=== PATIENT | female | born 1990 | race Caucasian/White ===

== ENCOUNTER 2020-07-11 08:23 | Observation (INO) | payer OTHER ==
[~2020-07-11] VITALS: Ht 170.2 cm; Wt 114.4 kg
[2020-07-11] MEDS ORDERED: KETOROLAC 15 MG/ML VIAL. IVP ONE (08:30)
[2020-07-11] MEDS ORDERED: diazePAM 5 MG TABLET PO ONE (08:30)
[2020-07-11] MEDS ORDERED: IV NORMAL SALINE 1000ML BAG 1,000 ML IV ONE (08:30)
[2020-07-11] MEDS ORDERED: MORPHINE SULFATE 4 MG/ML VIAL. IV ONE (09:30)
--- NOTE | 2020-07-11 09:30 | PHYS DOC ---
Past Medical History Past Medical History: Kidney Stone, Other Additional Past Medical Histor: ARM FX, UTERINE FIB Past Surgical History: Smoking Status: Never Smoker Alcohol Use: None Adult General Chief Complaint Chief Complaint: BACK PAIN OR INJURY [facility] HPI Patient is a 30 year old female who denies any significant past history now presenting emergency department complaint of new onset of back pain. Patient states that approximate 30 minutes prior to arrival she was bending over to, type her back for her baby when she felt a popping sensation in her lower lumbar region in the center and then noted pain radiating down bilateral buttocks. Patient states that since that time she is been having intermittent spasming pain that is primarily in the central region but slightly more on the right than on the left. Denies any numbness or weakness in the lower extremities but does state that both her feet feel cool. Also denies any bladder or bowel incontinence. Denies any falls or other injuries to the area. Denies any history of similar symptoms. Patient does have a history of multiple fractures requiring surgical repair and is a history of section. Denies any fever, chills, nausea, vomiting, dizziness or lightheadedness. Review of Systems Review of Systems Constitutional: Denies fever or chills [] Eyes: Denies change in visual acuity, redness, or eye pain [] HENT: Denies nasal congestion or sore throat [] Respiratory: Denies cough or shortness of breath [] Cardiovascular: No additional information not addressed in HPI [] GI: Denies abdominal pain, nausea, vomiting, bloody stools or diarrhea [] : Denies dysuria or hematuria [] Musculoskeletal: Denies back pain or joint pain [] Integument: Denies rash or skin lesions [] Neurologic: Denies headache, focal weakness or sensory changes [] Endocrine: Denies polyuria or polydipsia [] All other systems were reviewed and found to be within normal limits, except as documented in this note. Current Medications Current Medications Current Medications Medications (Trade) Dose Ordered Sig/Martita Start Time Stop Time Status Last Admin Dose Admin Diazepam (Valium) 5 mg 1X ONCE 07/11/20 08:30 07/11/20 08:35 DC 07/11/20 08:45 5 MG Ketorolac Tromethamine (Toradol 15mg Vial) 15 mg 1X ONCE 07/11/20 08:30 07/11/20 08:35 DC 07/11/20 08:44 15 MG Morphine Sulfate (Morphine Sulfate) 4 mg 1X ONCE 07/11/20 09:30 07/11/20 09:31 DC 07/11/20 09:38 4 MG Sodium Chloride 1,000 ml @ 1,000 mls/hr 1X ONCE 07/11/20 08:30 07/11/20 09:29 DC 07/11/20 08:44 1,000 MLS/HR Allergies Allergies Allergies Coded Allergies Type Severity Reaction Last Updated Verified No Known Drug Allergies 07/11/20 No Physical Exam Physical Exam Constitutional: Well developed, well nourished, no acute distress, non-toxic appearance. [] HENT: Normocephalic, atraumatic, bilateral external ears normal, oropharynx moist, no oral exudates, nose normal. [] Eyes: PERRLA, EOMI, conjunctiva normal, no discharge. [] Neck: Normal range of motion, no tenderness, supple, no stridor. [] Cardiovascular:Heart rate regular rhythm, no murmur [] Lungs & Thorax: Bilateral breath sounds clear to auscultation [] Abdomen: Bowel sounds normal, soft, no tenderness, no masses, no pulsatile masses. [] Skin: Warm, dry, no erythema, no rash. [] Back: Mild lower lumbar midline tenderness and mild right lower paraspinal tenderness, no CVA tenderness. [] Extremities: No tenderness, no cyanosis, no clubbing, ROM intact, no edema. Holding right hip in flexion and external rotation Neurologic: Alert and oriented X 3, normal motor function, normal sensory fu nction, no focal deficits noted. [] Psychologic: Affect normal, judgement normal, mood normal. [] Current Patient Data Vital Signs Vital Signs Date Time Temp Pulse Resp B/P (MAP) Pulse Ox O2 Delivery O2 Flow Rate FiO2 07/11/20 10:57 80 20 106/65 (79) 98 Room Air 07/11/20 08:23 97.5 97.5 Lab Values Laboratory Tests Test 07/11/20 09:42 07/11/20 09:46 White Blood Count 6.8 x10^3/uL (4.0-11.0) Red Blood Count 4.57 x10^6/uL (3.50-5.40) Hemoglobin 13.7 g/dL (12.0-15.5) Hematocrit 41.2 % (36.0-47.0) Mean Corpuscular Volume 90 fL (79-100) Mean Corpuscular Hemoglobin 30 pg (25-35) Mean Corpuscular Hemoglobin Concent 33 g/dL (31-37) Red Cell Distribution Width 13.7 % (11.5-14.5) Platelet Count 219 x10^3/uL (140-400) Neutrophils (%) (Auto) 77 % (31-73) H Lymphocytes (%) (Auto) 17 % (24-48) L Monocytes (%) (Auto) 5 % (0-9) Eosinophils (%) (Auto) 1 % (0-3) Basophils (%) (Auto) 1 % (0-3) Neutrophils # (Auto) 5.2 x10^3/uL (1.8-7.7) Lymphocytes # (Auto) 1.1 x10^3/uL (1.0-4.8) Monocytes # (Auto) 0.3 x10^3/uL (0.0-1.1) Eosinophils # (Auto) 0.1 x10^3/uL (0.0-0.7) Basophils # (Auto) 0.0 x10^3/uL (0.0-0.2) Urine Collection Type Unknown Urine Color Yellow Urine Clarity Clear Urine pH 6.0 (<5.0-8.0) Urine Specific [place] >=1.030 (1.000-1.030) Urine Protein Negative mg/dL (NEG-TRACE) Urine Glucose (UA) Negative mg/dL (NEG) Urine Ketones (Stick) Trace mg/dL (NEG) Urine Blood Negative (NEG) Urine Nitrite Negative (NEG) Urine Bilirubin Negative (NEG) Urine Urobilinogen Dipstick 0.2 mg/dL (0.2 mg/dL) Urine Leukocyte Esterase Negative (NEG) Urine RBC 0 /HPF (0-2) Urine WBC 1-4 /HPF (0-4) Urine Squamous Epithelial Cells Mod /LPF Urine Bacteria 0 /HPF (0-FEW) Urine Mucus Mod /LPF Maternal Serum HCG Beta Subunit 663 mIU/mL (0-5) H Sodium Level 138 mmol/L (136-145) Potassium Level 3.6 mmol/L (3.5-5.1) Chloride Level 106 mmol/L (98-107) Carbon Dioxide Level 20 mmol/L (21-32) L Anion Gap 12 (6-14) Blood Urea Nitrogen 9 mg/dL (7-20) Creatinine 0.7 mg/dL (0.6-1.0) Estimated GFR (Cockcroft-Gault) 98.9 Glucose Level 111 mg/dL (70-99) H Calcium Level 8.6 mg/dL (8.5-10.1) POC Urine HCG, Qualitative Hcg positive (Negative) Laboratory Tests 07/11/20 09:42 Laboratory Tests 07/11/20 09:42 EKG EKG [] Radiology/Procedures Radiology/Procedures [] Course & Med Decision Making Course & Med Decision Making Pertinent Labs and Imaging studies reviewed. (See chart for details) 30f presented to emergency department new onset of back pain most consistent with acute muscle strain in the back of the right psoas. Less likely to be a dissection or other significant intra-abdominal abnormality given the patient's age. Will treat the patient symptomatically and obtain x-rays of the lumbar region After initial presentation test came back positive. Patient states that she did not she was and states this must be early. X-ray was canceled. After additional pain medication patient states that her symptoms returned. Limited in what we are able to give the patient as far as pain medica tion at this time. Still no neurologic deficits. At this time will admit the patient for amatory dysfunction and neuro checks to make sure she does not need an MRI of the spine Dragon Disclaimer Dragon Disclaimer This electronic medical record was generated, in whole or in part, using a voice recognition dictation system. Departure Departure Impression: Primary Impression: Back strain Disposition: ADMITTED INPT THIS HOSP Condition: GOOD Referrals: NO PCP (PCP) ALEXANDER ZACARIAS MD Jul 11, 2020 09:30
[2020-07-11 10:03] LABS: BILIRUBIN,URINE NEGATIVE (NEG); CLARITY,URINE CLEAR; COLOR,URINE YELLOW; NITRITE,URINE NEGATIVE (NEG); PROTEIN,URINE NEGATIVE (NEG-TRACE); UROBILINOGEN,URINE 0.2 mg/dL (0.2 mg/dL)
[2020-07-11 10:07] LABS: BASO % 1 % (0-3); EOS # 0.1 x10^3/uL (0.0-0.7); EOS % 1 % (0-3); HEMATOCRIT 41.2 % (36.0-47.0); HEMOGLOBIN 13.7 g/dL (12.0-15.5); LYMPH # 1.1 x10^3/uL (1.0-4.8); LYMPH % 17 % (24-48); MEAN CORPUSCULAR HEMOGLOBIN 30 pg (25-35); MEAN CORPUSCULAR HGB CONC 33 g/dL (31-37); MEAN CORPUSCULAR VOLUME 90 fL (79-100); MONO # 0.3 x10^3/uL (0.0-1.1); MONO % 5 % (0-9); NEUT # 5.2 x10^3/uL (1.8-7.7); NEUT % 77 % (31-73); PLATELET COUNT 219 x10^3/uL (140-400); RED BLOOD COUNT 4.57 x10^6/uL (3.50-5.40); RED CELL DISTRIBUTION WIDTH 13.7 % (11.5-14.5); WHITE BLOOD COUNT 6.8 x10^3/uL (4.0-11.0)
[2020-07-11 10:13] LABS: CALCIUM 8.6 mg/dL (8.5-10.1); CREATININE 0.7 mg/dL (0.6-1.0); GFR 98.9; POTASSIUM 3.6 mmol/L (3.5-5.1)
[2020-07-11 10:17] LABS: BACTERIA,URINE 0 /HPF (0-FEW); RBC,URINE 0 /HPF (0-2)
--- NOTE | 2020-07-11 11:13 | RAD ---
US OB <14 WKS +TV History: Back pain. Comparison: None. Technique: Sonographic examination of the pelvis was performed with transabdominal and transvaginal t echnique. Findings: The uterus is normal in size and echogenicity, measuring 8.7 x 4.8 x 5.5 cm. The endometrial stripe measures 1.9 cm. No gestational sac is identified. The right ovary is normal in size and echogenicity, measuring 2.4 x 4.1 x 2.7 cm. The left ovary is normal in size and echogenicity, measuring 4.4 x 2.6 x 2.4 cm., Inclusive of a 2.6 cm hemorrhagic cyst. There is no evidence of adnexal mass or free fluid. Impression: Thickened endometrial stripe measuring 1.9 cm without gestational sac identified. No ectopic pregnanc y identified. This is a of unknown location. Differential includes early intrauterine pregn chris, early ectopic and failed . Recommend close clinical and ultrasound follow-up . No acute pelvic findings. Electronically signed by: Kit Funes MD (07/11/2020 11:10 AM) [facility]
--- NOTE | 2020-07-11 13:56 | PDOC1 ---
History and Physical Date of Service: DOS: DATE: 07/11/20 TIME: 13:55 Chief Complaint: Chief Complain: Back pain History of Present Illness: HPI: History obtained from discussion with ED physician and the patient and the . 30 year old F with past medical history of kidney stones about 6 months ago who presents to the emergency department complaint of new onset of back pain. Patient states that approximate 30 minutes prior to arrival she was bending over to, type her back for her baby when she felt a popping sensation in her lower lumbar region in the center and then noted pain radiating down bilateral buttocks. Patient states that since that time she is been having intermittent spasming pain that is primarily in the central region but slightly more on the right than on the left. Denies any numbness or weakness in the lower extremities but does state that both her feet feel cool. Also denies any bladder or bowel incontinence. Denies any falls or other injuries to the area. Denies any history of similar symptoms. Patient does have a history of multiple fractures requiring surgical repair and is a history of section. Denies any fever, chills, nausea, vomiting, dizziness or lightheadedness. Past Medical/Surgical History: PMH/PSH: Past Medical History: Kidney Stone, ARM FX, UTERINE FIB Past Surgical History: Allergies: Allergies: Coded Allergies: No Known Drug Allergies (Unverified , 07/11/20) Family History: Family History: Reviewed with no relevant findings Social History: Social History: Smoking Status: Never Smoker Alcohol Use: None Current Medications: Current Medications Current Medications Ketorolac Tromethamine (Toradol 15mg Vial) 15 mg 1X ONCE IVP Last administered on 07/11/20at 08:44; Start 07/11/20 at 08:30; Stop 07/11/20 at 08:35; Status DC Sodium Chloride 1,000 ml @ 1,000 mls/hr 1X ONCE IV Last administered on 07/11/20at 08:44; Start 07/11/20 at 08:30; Stop 07/11/20 at 09:29; Status DC Diazepam (Valium) 5 mg 1X ONCE PO Last administered on 07/11/20at 08:45; Start 07/11/20 at 08:30; Stop 07/11/20 at 08:35; Status DC Morphine Sulfate (Morphine Sulfate) 4 mg 1X ONCE IV Last administered on 07/11/20at 09:38; Start 07/11/20 at 09:30; Stop 07/11/20 at 09:31; Status DC ROS: Review of Systems Review of System REVIEW OF SYSTEMS: GENERAL: Denies weakness SKIN: No bruising, hair changes or rashes. EYES: No blurred, double or loss of vision. NOSE AND THROAT: No history of nosebleeds, hoarseness or sore throat. HEART: No history of palpitations, chest pain or shortness of breath on exertion. LUNGS: Denies cough, hemoptysis, wheezing or shortness of breath. GASTROINTESTINAL: Denies changes in appetite, nausea, vomiting, diarrhea or constipation. GENITOURINARY: No history of frequency, urgency, hesitancy or nocturia. NEUROLOGIC: Denies history of numbness, tingling, or tremor. PSYCHIATRIC: No history of panic, anxiety or depression. ENDOCRINE: No history of heat or cold intolerance, polyuria or polydipsia. EXTREMITIES: Denies joint pain, pain on walking or stiffness. Physical Exam: Vital Signs: Vital Signs Date Time Temp Pulse Resp B/P (MAP) Pulse Ox O2 Delivery O2 Flow Rate FiO2 07/11/20 13:49 80 22 117/78 (91) 98 Room Air 07/11/20 08:23 97.5 97.5 Physcial Exam: GEN: No apparent distress. Alert and oriented HEENT: Normal cephalic, atraumatic, external auditory canals are patent EYES: Extraocular muscles are intact, pupil are equally round and reactive to light and accommodation MUSCULOSKELETAL: Limited range of motion in and back. No step-offs or point tenderness in the midline of the spine. ENDOCRINE: No thyromegaly was palpated LYMPHATICS: No cervical chain or axillary nodes were noted HEMATOPOIETIC: No bruising NECK: Supple, no JVD, no thyromegaly was noted LUNGS: Clear to auscultation in all lung lepe without rhonchi or wheezing HEART: RRR, S!, S2 present. Peripheral pulses intact, no obvious murmurs noted ABDOMEN: Soft, nontender. Positive bowel sounds, no organomegaly, normal bowel sounds EXTREMITIES: Patient unable to elevate extremities without assistance. NEUROLOGIC: Normal speech and tone. A&O x 3, moves all extremities, no obvious focal deficits PSYCHIATRIC: Normal affect, normal mood. Stable SKIN: No ulcerations or rashes, good skin turgor, no jaundice VASCULAR: Good capillary refill, neurovascular bundle appears to be intact Labs: Labs: Laboratory Tests Test 07/11/20 09:42 07/11/20 09:46 White Blood Count 6.8 x10^3/uL (4.0-11.0) Red Blood Count 4.57 x10^6/uL (3.50-5.40) Hemoglobin 13.7 g/dL (12.0-15.5) Hematocrit 41.2 % (36.0-47.0) Mean Corpuscular Volume 90 fL (79-100) Mean Corpuscular Hemoglobin 30 pg (25-35) Mean Corpuscular Hemoglobin Concent 33 g/dL (31-37) Red Cell Distribution Width 13.7 % (11.5-14.5) Platelet Count 219 x10^3/uL (140-400) Neutrophils (%) (Auto) 77 % (31-73) Lymphocytes (%) (Auto) 17 % (24-48) Monocytes (%) (Auto) 5 % (0-9) Eosinophils (%) (Auto) 1 % (0-3) Basophils (%) (Auto) 1 % (0-3) Neutrophils # (Auto) 5.2 x10^3/uL (1.8-7.7) Lymphocytes # (Auto) 1.1 x10^3/uL (1.0-4.8) Monocytes # (Auto) 0.3 x10^3/uL (0.0-1.1) Eosinophils # (Auto) 0.1 x10^3/uL (0.0-0.7) Basophils # (Auto) 0.0 x10^3/uL (0.0-0.2) Urine Collection Type Unknown Urine Color Yellow Urine Clarity Clear Urine pH 6.0 (<5.0-8.0) Urine Specific [place] >=1.030 (1.000-1.030) Urine Protein Negative mg/dL (NEG-TRACE) Urine Glucose (UA) Negative mg/dL (NEG) Urine Ketones (Stick) Trace mg/dL (NEG) Urine Blood Negative (NEG) Urine Nitrite Negative (NEG) Urine Bilirubin Negative (NEG) Urine Urobilinogen Dipstick 0.2 mg/dL (0.2 mg/dL) Urine Leukocyte Esterase Negative (NEG) Urine RBC 0 /HPF (0-2) Urine WBC 1-4 /HPF (0-4) Urine Squamous Epithelial Cells Mod /LPF Urine Bacteria 0 /HPF (0-FEW) Urine Mucus Mod /LPF Maternal Serum HCG Beta Subunit 663 mIU/mL (0-5) Sodium Level 138 mmol/L (136-145) Potassium Level 3.6 mmol/L (3.5-5.1) Chloride Level 106 mmol/L (98-107) Carbon Dioxide Level 20 mmol/L (21-32) Anion Gap 12 (6-14) Blood Urea Nitrogen 9 mg/dL (7-20) Creatinine 0.7 mg/dL (0.6-1.0) Estimated GFR (Cockcroft-Gault) 98.9 Glucose Level 111 mg/dL (70-99) Calcium Level 8.6 mg/dL (8.5-10.1) Bedside Urine HCG, Qualitative Hcg positive (Negative) Laboratory Tests Test 07/11/20 09:42 07/11/20 09:46 White Blood Count 6.8 x10^3/uL (4.0-11.0) Red Blood Count 4.57 x10^6/uL (3.50-5.40) Hemoglobin 13.7 g/dL (12.0-15.5) Hematocrit 41.2 % (36.0-47.0) Mean Corpuscular Volume 90 fL (79-100) Mean Corpuscular Hemoglobin 30 pg (25-35) Mean Corpuscular Hemoglobin Concent 33 g/dL (31-37) Red Cell Distribution Width 13.7 % (11.5-14.5) Platelet Count 219 x10^3/uL (140-400) Neutrophils (%) (Auto) 77 % (31-73) Lymphocytes (%) (Auto) 17 % (24-48) Monocytes (%) (Auto) 5 % (0-9) Eosinophils (%) (Auto) 1 % (0-3) Basophils (%) (Auto) 1 % (0-3) Neutrophils # (Auto) 5.2 x10^3/uL (1.8-7.7) Lymphocytes # (Auto) 1.1 x10^3/uL (1.0-4.8) Monocytes # (Auto) 0.3 x10^3/uL (0.0-1.1) Eosinophils # (Auto) 0.1 x10^3/uL (0.0-0.7) Basophils # (Auto) 0.0 x10^3/uL (0.0-0.2) Urine Collection Type Unknown Urine Color Yellow Urine Clarity Clear Urine pH 6.0 (<5.0-8.0) Urine Specific [place] >=1.030 (1.000-1.030) Urine Protein Negative mg/dL (NEG-TRACE) Urine Glucose (UA) Negative mg/dL (NEG) Urine Ketones (Stick) Trace mg/dL (NEG) Urine Blood Negative (NEG) Urine Nitrite Negative (NEG) Urine Bilirubin Negative (NEG) Urine Urobilinogen Dipstick 0.2 mg/dL (0.2 mg/dL) Urine Leukocyte Esterase Negative (NEG) Urine RBC 0 /HPF (0-2) Urine WBC 1-4 /HPF (0-4) Urine Squamous Epithelial Cells Mod /LPF Urine Bacteria 0 /HPF (0-FEW) Urine Mucus Mod /LPF Maternal Serum HCG Beta Subunit 663 mIU/mL (0-5) Sodium Level 138 mmol/L (136-145) Potassium Level 3.6 mmol/L (3.5-5.1) Chloride Level 106 mmol/L (98-107) Carbon Dioxide Level 20 mmol/L (21-32) Anion Gap 12 (6-14) Blood Urea Nitrogen 9 mg/dL (7-20) Creatinine 0.7 mg/dL (0.6-1.0) Estimated GFR (Cockcroft-Gault) 98.9 Glucose Level 111 mg/dL (70-99) Calcium Level 8.6 mg/dL (8.5-10.1) Bedside Urine HCG, Qualitative Hcg positive (Negative) Images: Images PELVIC US Impression: Thickened endometrial stripe measuring 1.9 cm without gestational sac identified. No ectopic identified. This is a of unknown location. Differential includes early intrauterine , early ectopic and failed . Recommend close clinical and ultrasound follow- up. No acute pelvic findings. Assessment/Plan Assessment/Plan Intractable back pain causing ambulatory dysfunction Low HCO3 Admit to medicine for observation IV morphine for pain control Flexeril for pain control Rehab consult PT OT Ambulation for DVT prophylaxis Regular diet Full code Discussed with RN and SW Disposition pending rehab consult with Dr. Fitzpatrick Surrogate decision maker is the Justifications for Admission Other Justification FRANKLYN DELAROSA MD Jul 11, 2020 13:56
[2020-07-11 14:23] VITALS: BP 98/49
[2020-07-11 15:00] VITALS: BP 108/61
[2020-07-11] MEDS: CYCLOBENZAPRINE 10 MG TABLET. PO PRN (15:34)
[2020-07-11] MEDS: MORPHINE SULFATE 2 MG/ML VIAL. IV PRN ×4 (15:34→22:44)
[2020-07-11 15:45] VITALS: BP 107/39
[2020-07-11] MEDS ORDERED: DEXTROSE 50% 25 GM / 50ML DISP.SYRIN. IV PRN (16:00)
[2020-07-11] MEDS ORDERED: ONDANSETRON PF 4 MG/2 ML VIAL. IVP PRN (16:00)
[2020-07-11] MEDS ORDERED: MORPHINE SULFATE 2 MG/ML VIAL. IV PRN (16:00)
[2020-07-11] MEDS ORDERED: DOCUSATE SODIUM 100 MG CAPSULE. PO PRN (16:00)
[2020-07-11] MEDS ORDERED: SENNOSIDES 8.6 MG TABLET PO PRN (16:00)
[2020-07-11] MEDS ORDERED: ACETAMINOPHEN 325 MG TABLET. PO PRN (16:00)
[2020-07-11 19:00] VITALS: BP 114/58
[2020-07-11 23:00] VITALS: BP 104/67
[2020-07-12] MEDS: CYCLOBENZAPRINE 10 MG TABLET. PO PRN ×2 (00:03→07:47)
[2020-07-12] MEDS: MORPHINE SULFATE 2 MG/ML VIAL. IV PRN ×8 (01:16→23:11)
[2020-07-12 03:00] VITALS: BP 120/60
[2020-07-12 07:00] VITALS: BP 107/63
[2020-07-12 08:13] LABS: BASO # 0.1 x10^3/uL (0.0-0.2); BASO % 1 % (0-3); EOS # 0.1 x10^3/uL (0.0-0.7); EOS % 1 % (0-3); HEMATOCRIT 36.7 % (36.0-47.0); HEMOGLOBIN 12.5 g/dL (12.0-15.5); LYMPH # 1.4 x10^3/uL (1.0-4.8); LYMPH % 15 % (24-48); MEAN CORPUSCULAR HEMOGLOBIN 30 pg (25-35); MEAN CORPUSCULAR HGB CONC 34 g/dL (31-37); MEAN CORPUSCULAR VOLUME 89 fL (79-100); MONO # 0.4 x10^3/uL (0.0-1.1); MONO % 4 % (0-9); NEUT # 7.3 x10^3/uL (1.8-7.7); NEUT % 80 % (31-73); PLATELET COUNT 233 x10^3/uL (140-400); RED BLOOD COUNT 4.15 x10^6/uL (3.50-5.40); RED CELL DISTRIBUTION WIDTH 13.8 % (11.5-14.5); WHITE BLOOD COUNT 9.1 x10^3/uL (4.0-11.0)
[2020-07-12 08:33] LABS: CALCIUM 7.7 mg/dL (8.5-10.1); CREATININE 0.5 mg/dL (0.6-1.0); GFR 145.9; PHOSPHORUS 3.5 mg/dL (2.6-4.7); POTASSIUM 3.3 mmol/L (3.5-5.1)
--- NOTE | 2020-07-12 08:57 | PDOC ---
PROGRESS NOTES Date of Service: DATE: 07/12/20 TIME: 08:56 Chief Complaint Chief Complaint Images: Images PELVIC US Impression: Thickened endometrial stripe measuring 1.9 cm without gestational sac identified. No ectopic identified. This is a of unknown location. Differential includes early intrauterine , early ectopic and failed . Recommend close clinical and ultrasound follow- up. No acute pelvic findings. Assessment/Plan Assessment/Plan Intractable back pain causing ambulatory dysfunction Low HCO3 HYPOKALEMIA ON REPLACEMENT plan Admit to medicine for observation IV morphine for pain control Flexeril for pain control Rehab consult PT OT Ambulation for DVT prophylaxis Regular diet Full code Discussed with RN and VANESSA Disposition pending rehab consult with Dr. Fitzpatrick Surrogate decision maker is the [employer] CONSULT Differential includes early intrauterine , early ectopic and failed . 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 30 year old F with past medical history of kidney stones about 6 months ago who presents to the emergency department complaint of new onset of back pain. Patient states that approximate 30 minutes prior to arrival she was bending over to, type her back for her baby when she felt a popping sensation in her lower lumbar region in the center and then noted pain radiating down bilateral buttocks. Patient states that since that time she is been having intermittent s pasming pain that is primarily in the central region but slightly more on the right than on the left. Denies any numbness or weakness in the lower extremities but does state that both her feet feel cool. Also denies any bladder or bowel incontinence. Denies any falls or other injuries to the area. Denies any history of similar symptoms. Patient does have a history of multiple fractures requiring surgical repair and is a history of section. Denies any fever, chills, nausea, vomiting, dizziness or lightheadedness. cem reviewed Past Medical/Surgical History: PMH/PSH: Past Medical History: Kidney Stone, ARM FX, UTERINE FIB Past Surgical History: Allergies: Allergies: Coded Allergies: No Known Drug Allergies (Unverified , 07/11/20) Family History: Family History: Reviewed with no relevant findings Social History: Social History: Smoking Status: Never Smoker Alcohol Use: None Current Medications: Current Medications Current Medications Ketorolac Tromethamine (Toradol 15mg Vial) 15 mg 1X ONCE IVP Last administered on 07/11/20at 08:44; Start 07/11/20 at 08:30; Stop 07/11/20 at 08:35; Status DC Sodium Chloride 1,000 ml @ 1,000 mls/hr 1X ONCE IV Last administered on 07/11/20at 08:44; Start 07/11/20 at 08:30; Stop 07/11/20 at 09:29; Status DC Diazepam (Valium) 5 mg 1X ONCE PO Last administered on 07/11/20at 08:45; Start 07/11/20 at 08:30; Stop 07/11/20 at 08:35; Status DC Morphine Sulfate (Morphine Sulfate) 4 mg 1X ONCE IV Last administered on 07/11/20at 09:38; Start 07/11/20 at 09:30; Stop 07/11/20 at 09:31; Status DC ROS: Review of Systems Review of System REVIEW OF SYSTEMS: GENERAL: Denies weakness SKIN: No bruising, hair changes or rashes. EYES: No blurred, double or loss of vision. NOSE AND THROAT: No history of nosebleeds, hoarseness or sore throat. HEART: No history of palpitations, chest pain or shortness of breath on exertion. LUNGS: Denies cough, hemoptysis, wheezing or shortness of breath. GASTROINTESTINAL: Denies changes in appetite, nausea, vomiting, diarrhea or constipation. GENITOURINARY: No history of frequency, urgency, hesitancy or nocturia. NEUROLOGIC: Denies history of numbness, tingling, or tremor. PSYCHIATRIC: No history of panic, anxiety or depression. ENDOCRINE: No history of heat or cold intolerance, polyuria or polydipsia. EXTREMITIES: Denies joint pain, pain on walking or stiffness. Vitals Vitals Vital Signs Date Time Temp Pulse Resp B/P (MAP) Pulse Ox O2 Delivery O2 Flow Rate FiO2 07/12/20 08:17 Room Air 07/12/20 07:00 98.4 83 16 107/63 (23) 94 98.4 Physical Exam Physical Exam Physcial Exam: GEN: No apparent distress. Alert and oriented HEENT: Normal cephalic, atraumatic, external auditory canals are patent EYES: Extraocular muscles are intact, pupil are equally round and reactive to light and accommodation MUSCULOSKELETAL: Limited range of motion in and back. No step-offs or point tenderness in the midline of the spine. ENDOCRINE: No thyromegaly was palpated LYMPHATICS: No cervical chain or axillary nodes were noted HEMATOPOIETIC: No bruising NECK: Supple, no JVD, no thyromegaly was noted LUNGS: Clear to auscultation in all lung lepe without rhonchi or wheezing HEART: RRR, S!, S2 present. Peripheral pulses intact, no obvious murmurs noted ABDOMEN: Soft, nontender. Positive bowel sounds, no organomegaly, normal bowel sounds EXTREMITIES: Patient unable to elevate extremities without assistance. NEUROLOGIC: Normal speech and tone. A&O x 3, moves all extremities, no obvious focal deficits PSYCHIATRIC: Normal affect, normal mood. Stable SKIN: No ulcerations or rashes, good skin turgor, no jaundice VASCULAR: Good capillary refill, neurovascular bundle appears to be intact General: Alert, Oriented X3, Cooperative, mild distress Heart: Regular rate Lungs: Clear Abdomen: Soft, No tenderness Extremities: No cyanosis, No edema Skin: No rashes, No significant lesion Labs LABS Laboratory Tests Test 07/11/20 09:42 07/11/20 09:46 07/12/20 05:45 White Blood Count 6.8 x10^3/uL (4.0-11.0) 9.1 x10^3/uL (4.0-11.0) Red Blood Count 4.57 x10^6/uL (3.50-5.40) 4.15 x10^6/uL (3.50-5.40) Hemoglobin 13.7 g/dL (12.0-15.5) 12.5 g/dL (12.0-15.5) Hematocrit 41.2 % (36.0-47.0) 36.7 % (36.0-47.0) Mean Corpuscular Volume 90 fL (79-100) 89 fL (79-100) Mean Corpuscular Hemoglobin 30 pg (25-35) 30 pg (25-35) Mean Corpuscular Hemoglobin Concent 33 g/dL (31-37) 34 g/dL (31-37) Red Cell Distribution Width 13.7 % (11.5-14.5) 13.8 % (11.5-14.5) Platelet Count 219 x10^3/uL (140-400) 233 x10^3/uL (140-400) Neutrophils (%) (Auto) 77 % (31-73) 80 % (31-73) Lymphocytes (%) (Auto) 17 % (24-48) 15 % (24-48) Monocytes (%) (Auto) 5 % (0-9) 4 % (0-9) Eosinophils (%) (Auto) 1 % (0-3) 1 % (0-3) Basophils (%) (Auto) 1 % (0-3) 1 % (0-3) Neutrophils # (Auto) 5.2 x10^3/uL (1.8-7.7) 7.3 x10^3/uL (1.8-7.7) Lymphocytes # (Auto) 1.1 x10^3/uL (1.0-4.8) 1.4 x10^3/uL (1.0-4.8) Monocytes # (Auto) 0.3 x10^3/uL (0.0-1.1) 0.4 x10^3/uL (0.0-1.1) Eosinophils # (Auto) 0.1 x10^3/uL (0.0-0.7) 0.1 x10^3/uL (0.0-0.7) Basophils # (Auto) 0.0 x10^3/uL (0.0-0.2) 0.1 x10^3/uL (0.0-0.2) Urine Collection Type Unknown Urine Color Yellow Urine Clarity Clear Urine pH 6.0 (<5.0-8.0) Urine Specific [place] >=1.030 (1.000-1.030) Urine Protein Negative mg/dL (NEG-TRACE) Urine Glucose (UA) Negative mg/dL (NEG) Urine Ketones (Stick) Trace mg/dL (NEG) Urine Blood Negative (NEG) Urine Nitrite Negative (NEG) Urine Bilirubin Negative (NEG) Urine Urobilinogen Dipstick 0.2 mg/dL (0.2 mg/dL) Urine Leukocyte Esterase Negative (NEG) Urine RBC 0 /HPF (0-2) Urine WBC 1-4 /HPF (0-4) Urine Squamous Epithelial Cells Mod /LPF Urine Bacteria 0 /HPF (0-FEW) Urine Mucus Mod /LPF Maternal Serum HCG Beta Subunit 663 mIU/mL (0-5) Sodium Level 138 mmol/L (136-145) 138 mmol/L (136-145) Potassium Level 3.6 mmol/L (3.5-5.1) 3.3 mmol/L (3.5-5.1) Chloride Level 106 mmol/L (98-107) 104 mmol/L (98-107) Carbon Dioxide Level 20 mmol/L (21-32) 21 mmol/L (21-32) Anion Gap 12 (6-14) 13 (6-14) Blood Urea Nitrogen 9 mg/dL (7-20) 6 mg/dL (7-20) Creatinine 0.7 mg/dL (0.6-1.0) 0.5 mg/dL (0.6-1.0) Estimated GFR (Cockcroft-Gault) 98.9 145.9 Glucose Level 111 mg/dL (70-99) 80 mg/dL (70-99) Calcium Level 8.6 mg/dL (8.5-10.1) 7.7 mg/dL (8.5-10.1) Creatine Kinase 106 U/L (26-192) Bedside Urine HCG, Qualitative Hcg positive (Negative) Phosphorus Level 3.5 mg/dL (2.6-4.7) Magnesium Level 2.0 mg/dL (1.8-2.4) Assessment and Plan Assessmemt and Plan Problems Medical Problems: (1) Back strain Status: Acute Comment Review of Relevant I have reviewed the following items jonas (where applicable) has been applied. Labs Laboratory Tests Test 07/11/20 09:42 07/11/20 09:46 07/12/20 05:45 White Blood Count 6.8 x10^3/uL (4.0-11.0) 9.1 x10^3/uL (4.0-11.0) Red Blood Count 4.57 x10^6/uL (3.50-5.40) 4.15 x10^6/uL (3.50-5.40) Hemoglobin 13.7 g/dL (12.0-15.5) 12.5 g/dL (12.0-15.5) Hematocrit 41.2 % (36.0-47.0) 36.7 % (36.0-47.0) Mean Corpuscular Volume 90 fL (79-100) 89 fL (79-100) Mean Corpuscular Hemoglobin 30 pg (25-35) 30 pg (25-35) Mean Corpuscular Hemoglobin Concent 33 g/dL (31-37) 34 g/dL (31-37) Red Cell Distribution Width 13.7 % (11.5-14.5) 13.8 % (11.5-14.5) Platelet Count 219 x10^3/uL (140-400) 233 x10^3/uL (140-400) Neutrophils (%) (Auto) 77 % (31-73) 80 % (31-73) Lymphocytes (%) (Auto) 17 % (24-48) 15 % (24-48) Monocytes (%) (Auto) 5 % (0-9) 4 % (0-9) Eosinophils (%) (Auto) 1 % (0-3) 1 % (0-3) Basophils (%) (Auto) 1 % (0-3) 1 % (0-3) Neutrophils # (Auto) 5.2 x10^3/uL (1.8-7.7) 7.3 x10^3/uL (1.8-7.7) Lymphocytes # (Auto) 1.1 x10^3/uL (1.0-4.8) 1.4 x10^3/uL (1.0-4.8) Monocytes # (Auto) 0.3 x10^3/uL (0.0-1.1) 0.4 x10^3/uL (0.0-1.1) Eosinophils # (Auto) 0.1 x10^3/uL (0.0-0.7) 0.1 x10^3/uL (0.0-0.7) Basophils # (Auto) 0.0 x10^3/uL (0.0-0.2) 0.1 x10^3/uL (0.0-0.2) Urine Collection Type Unknown Urine Color Yellow Urine Clarity Clear Urine pH 6.0 (<5.0-8.0) Urine Specific [place] >=1.030 (1.000-1.030) Urine Protein Negative mg/dL (NEG-TRACE) Urine Glucose (UA) Negative mg/dL (NEG) Urine Ketones (Stick) Trace mg/dL (NEG) Urine Blood Negative (NEG) Urine Nitrite Negative (NEG) Urine Bilirubin Negative (NEG) Urine Urobilinogen Dipstick 0.2 mg/dL (0.2 mg/dL) Urine Leukocyte Esterase Negative (NEG) Urine RBC 0 /HPF (0-2) Urine WBC 1-4 /HPF (0-4) Urine Squamous Epithelial Cells Mod /LPF Urine Bacteria 0 /HPF (0-FEW) Urine Mucus Mod /LPF Maternal Serum HCG Beta Subunit 663 mIU/mL (0-5) Sodium Level 138 mmol/L (136-145) 138 mmol/L (136-145) Potassium Level 3.6 mmol/L (3.5-5.1) 3.3 mmol/L (3.5-5.1) Chloride Level 106 mmol/L (98-107) 104 mmol/L (98-107) Carbon Dioxide Level 20 mmol/L (21-32) 21 mmol/L (21-32) Anion Gap 12 (6-14) 13 (6-14) Blood Urea Nitrogen 9 mg/dL (7-20) 6 mg/dL (7-20) Creatinine 0.7 mg/dL (0.6-1.0) 0.5 mg/dL (0.6-1.0) Estimated GFR (Cockcroft-Gault) 98.9 145.9 Glucose Level 111 mg/dL (70-99) 80 mg/dL (70-99) Calcium Level 8.6 mg/dL (8.5-10.1) 7.7 mg/dL (8.5-10.1) Creatine Kinase 106 U/L (26-192) Bedside Urine HCG, Qualitative Hcg positive (Negative) Phosphorus Level 3.5 mg/dL (2.6-4.7) Magnesium Level 2.0 mg/dL (1.8-2.4) Laboratory Tests Test 07/11/20 09:42 07/11/20 09:46 07/12/20 05:45 White Blood Count 6.8 x10^3/uL (4.0-11.0) 9.1 x10^3/uL (4.0-11.0) Red Blood Count 4.57 x10^6/uL (3.50-5.40) 4.15 x10^6/uL (3.50-5.40) Hemoglobin 13.7 g/dL (12.0-15.5) 12.5 g/dL (12.0-15.5) Hematocrit 41.2 % (36.0-47.0) 36.7 % (36.0-47.0) Mean Corpuscular Volume 90 fL (79-100) 89 fL (79-100) Mean Corpuscular Hemoglobin 30 pg (25-35) 30 pg (25-35) Mean Corpuscular Hemoglobin Concent 33 g/dL (31-37) 34 g/dL (31-37) Red Cell Distribution Width 13.7 % (11.5-14.5) 13.8 % (11.5-14.5) Platelet Count 219 x10^3/uL (140-400) 233 x10^3/uL (140-400) Neutrophils (%) (Auto) 77 % (31-73) 80 % (31-73) Lymphocytes (%) (Auto) 17 % (24-48) 15 % (24-48) Monocytes (%) (Auto) 5 % (0-9) 4 % (0-9) Eosinophils (%) (Auto) 1 % (0-3) 1 % (0-3) Basophils (%) (Auto) 1 % (0-3) 1 % (0-3) Neutrophils # (Auto) 5.2 x10^3/uL (1.8-7.7) 7.3 x10^3/uL (1.8-7.7) Lymphocytes # (Auto) 1.1 x10^3/uL (1.0-4.8) 1.4 x10^3/uL (1.0-4.8) Monocytes # (Auto) 0.3 x10^3/uL (0.0-1.1) 0.4 x10^3/uL (0.0-1.1) Eosinophils # (Auto) 0.1 x10^3/uL (0.0-0.7) 0.1 x10^3/uL (0.0-0.7) Basophils # (Auto) 0.0 x10^3/uL (0.0-0.2) 0.1 x10^3/uL (0.0-0.2) Urine Collection Type Unknown Urine Color Yellow Urine Clarity Clear Urine pH 6.0 (<5.0-8.0) Urine Specific [place] >=1.030 (1.000-1.030) Urine Protein Negative mg/dL (NEG-TRACE) Urine Glucose (UA) Negative mg/dL (NEG) Urine Ketones (Stick) Trace mg/dL (NEG) Urine Blood Negative (NEG) Urine Nitrite Negative (NEG) Urine Bilirubin Negative (NEG) Urine Urobilinogen Dipstick 0.2 mg/dL (0.2 mg/dL) Urine Leukocyte Esterase Negative (NEG) Urine RBC 0 /HPF (0-2) Urine WBC 1-4 /HPF (0-4) Urine Squamous Epithelial Cells Mod /LPF Urine Bacteria 0 /HPF (0-FEW) Urine Mucus Mod /LPF Maternal Serum HCG Beta Subunit 663 mIU/mL (0-5) Sodium Level 138 mmol/L (136-145) 138 mmol/L (136-145) Potassium Level 3.6 mmol/L (3.5-5.1) 3.3 mmol/L (3.5-5.1) Chloride Level 106 mmol/L (98-107) 104 mmol/L (98-107) Carbon Dioxide Level 20 mmol/L (21-32) 21 mmol/L (21-32) Anion Gap 12 (6-14) 13 (6-14) Blood Urea Nitrogen 9 mg/dL (7-20) 6 mg/dL (7-20) Creatinine 0.7 mg/dL (0.6-1.0) 0.5 mg/dL (0.6-1.0) Estimated GFR (Cockcroft-Gault) 98.9 145.9 Glucose Level 111 mg/dL (70-99) 80 mg/dL (70-99) Calcium Level 8.6 mg/dL (8.5-10.1) 7.7 mg/dL (8.5-10.1) Creatine Kinase 106 U/L (26-192) Bedside Urine HCG, Qualitative Hcg positive (Negative) Phosphorus Level 3.5 mg/dL (2.6-4.7) Magnesium Level 2.0 mg/dL (1.8-2.4) Medications Current Medications Ketorolac Tromethamine (Toradol 15mg Vial) 15 mg 1X ONCE IVP Last administered on 07/11/20at 08:44; Start 07/11/20 at 08:30; Stop 07/11/20 at 08:35; Status DC Sodium Chloride 1,000 ml @ 1,000 mls/hr 1X ONCE IV Last administered on 07/11/20at 08:44; Start 07/11/20 at 08:30; Stop 07/11/20 at 09:29; Status DC Diazepam (Valium) 5 mg 1X ONCE PO Last administered on 07/11/20at 08:45; Start 07/11/20 at 08:30; Stop 07/11/20 at 08:35; Status DC Morphine Sulfate (Morphine Sulfate) 4 mg 1X ONCE IV Last administered on 07/11/20at 09:38; Start 07/11/20 at 09:30; Stop 07/11/20 at 09:31; Status DC Cyclobenzaprine HCl (Flexeril) 10 mg PRN TID PRN PO MUSCLE SPASMS Last administered on 07/12/20at 07:47; Start 07/11/20 at 15:00 Morphine Sulfate (Morphine Sulfate) 2 mg PRN Q2HR PRN IV PAIN Last administered on 07/12/20at 07:47; Start 07/11/20 at 15:00 Sennosides (Senna) 17.2 mg PRN BID PRN PO CONSTIPATION; Start 07/11/20 at 16:00 Docusate Sodium (Colace) 100 mg PRN DAILY PRN PO HARD STOOLS; Start 07/11/20 at 16:00 Ondansetron HCl (Zofran) 4 mg PRN Q6HRS PRN IVP NAUSEA/VOMITING; Start 07/11/20 at 16:00 Dextrose (Dextrose 50%-Water Syringe) 12.5 gm PRN Q15MIN PRN IV SEE COMMENTS; Start 07/11/20 at 16:00 Acetaminophen (Tylenol) 650 mg PRN Q4HRS PRN PO TEMP OVER 100.4F OR MILD PAIN; Start 07/11/20 at 16:00 Morphine Sulfate (Morphine Sulfate) 1 mg PRN Q1HR PRN IV PAIN; Start 07/11/20 at 16:00 Vitals/I & O Vital Sign - Last 24 Hours 07/11/20 07/11/20 07/11/20 07/11/20 09:14 09:38 10:57 13:49 Pulse 88 80 80 Resp 22 18 20 22 B/P (MAP) 108/78 (88) 106/65 (79) 117/78 (91) Pulse Ox 98 99 98 98 O2 Delivery Room Air Room Air Room Air Room Air 07/11/20 07/11/20 07/11/20 07/11/20 14:23 15:00 15:34 15:45 Temp 98.8 98.8 98.7 98.8 98.8 98.7 Pulse 76 76 78 Resp 18 18 17 B/P (MAP) 98/49 (65) 108/61 (77) 107/39 (61) Pulse Ox 98 97 97 O2 Delivery Room Air Room Air Room Air Room Air 07/11/20 07/11/20 07/11/20 07/11/20 16:04 17:59 18:29 19:00 Temp 98.2 98.2 Pulse 78 Resp 17 B/P (MAP) 114/58 (76) Pulse Ox 95 O2 Delivery Room Air Room Air Room Air Room Air 07/11/20 07/11/20 07/11/20 07/11/20 20:14 20:44 22:44 23:00 Temp 97.9 97.9 Pulse 83 Resp 20 20 20 17 B/P (MAP) 104/67 (79) Pulse Ox 95 95 95 96 O2 Delivery Room Air Room Air Room Air Room Air 07/11/20 07/12/20 07/12/20 07/12/20 23:14 01:16 01:46 03:00 Temp 98.8 98.8 Pulse 81 Resp 18 20 20 17 B/P (MAP) 120/60 (80) Pulse Ox 96 96 94 95 O2 Delivery Room Air Room Air Room Air Room Air 07/12/20 07/12/20 07/12/20 07/12/20 05:13 05:43 07:00 07:47 Temp 98.4 98.4 Pulse 83 Resp 20 20 16 B/P (MAP) 107/63 (78) Pulse Ox 95 95 94 O2 Delivery Room Air Room Air Room Air Room Air 07/12/20 08:17 O2 Delivery Room Air Intake and Output 07/11/20 07/11/20 07/12/20 15:00 23:00 07:00 Intake Total 150 ml 300 ml Output Total 0 ml Balance 150 ml 300 ml Justicifation of Admission Dx: Justifications for Admission: Justification of Admission Dx: No Comments: severe back pain FILIBERTO JENNINGS MD Jul 12, 2020 08:57
[2020-07-12] MEDS ORDERED: POTASSIUM CHLORIDE 20 MEQ TABLET.ER. PO ONE (09:15)
[2020-07-12] MEDS: LIDOCAINE (700MG/PATCH) PATCH. TD SCH (10:01)
[2020-07-12 11:00] VITALS: BP 112/66
[2020-07-12] MEDS ORDERED: cefTRIAXone IV Push 1 GM VIAL. IVP SCH (13:00)
--- NOTE | 2020-07-12 13:09 | CONS ---
DATE OF CONSULTATION: 07/12/2020 ATTENDING PHYSICIAN: Sam Calhoun MD REASON FOR CONSULTATION: The patient was seen at the request of Dr. Calhoun for rehab evaluation. HISTORY OF PRESENT ILLNESS: This is a 30-year-old female, working on a regular basis. The patient was admitted through the Emergency Room on 07/11/2020. She bent over to change diaper of her baby, 9-month-old. She felt a popping sensation in her lower back and since then she is having severe back pain interfering with her mobility and self-care skills. Ultrasound of the pelvis and abdomen revealed thickened endometrial stripe measuring 1.9 cm without gestational sac identified. No ectopic identified. This is a of unknown location. The patient is being treated with physical modalities and pain medication. She denies any tingling, numbness sensation in the extremities. She denies any difficulty with her bowel or bladder control. She denies any chronic lower back pain. PAST MEDICAL HISTORY: Includes kidney stones, arm fracture, uterine fibroids, status post resection, not known allergic to any medication. She lives with her family, had stairs for her to manage. PHYSICAL EXAMINATION: Physical examination today revealed young female. The patient is obese. She is alert, oriented to time, place, person and circumstance, and follows commands appropriately. Moves all 4 extremities voluntarily where she had 4+/5 grade muscle strength. Deep tendon reflexes are 2+ and symmetrical and she had equal perception of touch and pinprick sensation bilaterally. Painful range of motion of both hip joints. She had painful limited movements of lumbar spine and tenderness to palpation over lower thoracic and lumbar spine and adjoining paraspinal muscles extending over to sacroiliac joint area. Straight leg raising test is negative bilaterally. Her skin is intact at this time. She had moderate degree of lumbar paraspinal muscle spasm with abdominal binder as lumbar support. She got up and walked with a roller walker at bedside without any significant difficulty. ASSESSMENT: Lower thoracic and lumbosacral sprain. No clinical evidence of ongoing thoracic or lumbar radiculopathy to rule out degenerative disk disease of lumbar vertebrae. RECOMMENDATIONS: Agree with the use of physical modalities, to try Lidoderm patch. To consider lumbar corset if abdominal binder is not providing enough support. I have advised her to check with her ALARM MECHANISM ADJUSTER, to what medication she can take to control her pain better. Agree with the plan for physical therapy. Home when medically stable with outpatient followup by her family physician to ask outreach and education social worker to give her a roller walker for use at the time of discharge. Dr. Calhoun, I appreciate asking me to participate in the care of this interesting patient. I will be glad to see her for followup with you on as needed basis. MALGORZATA WHITE MD DR: ZHOU/kelsie JOB#: [id number] / [id number] SONI
[2020-07-12 15:00] VITALS: BP 118/75
--- NOTE | 2020-07-12 16:18 | PDOC2 ---
CONSULT Date of Consult Date of Consult DATE: 07/12/20 TIME: 16:17 Reason for Consult Reason for Consult: Possible ectopic History of Present Illness Reason for Visit: EDC: 03/18/21 LMP: 06/11/20 The pt is 30y @ 4.3 by LMP admitted for intractable back pain causing ambulatory dysfunction. 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 During the course of her w/u the pt was found to have a positive . A quant returned at 663 (07/11) and the repeat the following day was 948 (07/12). An u/s was performed on 07/11 revealing a thickened endometrial stripe measuring 1.9 cm without gestational sac identified. Since admission the pt has been on Flexirile and morphine prn. She feel that these meds have helped with pain. They have also tried a Lidoderm patch which she does not feel has affected her pain. She discussed the medications with her phlebotomy specialist at [facility]. PMH: PCOS PSH: removal of uterine septum, C/S x 2, broken arm x 3, tonsils Meds: None All: NKDA OBHx: 1st 38wks preeclampsia, C/S for breech, 2nd 34wk C/S for bleeding previa Sash Maker: menarche 16yo / regular SH: no tob, no EtOH FH: noncontributory Current Problem List Problem List Problems Medical Problems: (1) Back strain Status: Acute Current Medications Current Medications Current Medications Ketorolac Tromethamine (Toradol 15mg Vial) 15 mg 1X ONCE IVP Last administered on 07/11/20at 08:44; Start 07/11/20 at 08:30; Stop 07/11/20 at 08:35; Status DC Sodium Chloride 1,000 ml @ 1,000 mls/hr 1X ONCE IV Last administered on 07/11/20at 08:44; Start 07/11/20 at 08:30; Stop 07/11/20 at 09:29; Status DC Diazepam (Valium) 5 mg 1X ONCE PO Last administered on 07/11/20at 08:45; Start 07/11/20 at 08:30; Stop 07/11/20 at 08:35; Status DC Morphine Sulfate (Morphine Sulfate) 4 mg 1X ONCE IV Last administered on 07/11/20at 09:38; Start 07/11/20 at 09:30; Stop 07/11/20 at 09:31; Status DC Cyclobenzaprine HCl (Flexeril) 10 mg PRN TID PRN PO MUSCLE SPASMS Last administered on 07/12/20at 07:47; Start 07/11/20 at 15:00; Stop 07/12/20 at 12:36; Status DC Morphine Sulfate (Morphine Sulfate) 2 mg PRN Q2HR PRN IV PAIN Last administered on 07/12/20at 16:04; Start 07/11/20 at 15:00 Sennosides (Senna) 17.2 mg PRN BID PRN PO CONSTIPATION; Start 07/11/20 at 16:00 Docusate Sodium (Colace) 100 mg PRN DAILY PRN PO HARD STOOLS; Start 07/11/20 at 16:00 Ondansetron HCl (Zofran) 4 mg PRN Q6HRS PRN IVP NAUSEA/VOMITING; Start 07/11/20 at 16:00 Dextrose (Dextrose 50%-Water Syringe) 12.5 gm PRN Q15MIN PRN IV SEE COMMENTS; Start 07/11/20 at 16:00 Acetaminophen (Tylenol) 650 mg PRN Q4HRS PRN PO TEMP OVER 100.4F OR MILD PAIN; Start 07/11/20 at 16:00 Morphine Sulfate (Morphine Sulfate) 1 mg PRN Q1HR PRN IV PAIN; Start 07/11/20 at 16:00 Potassium Chloride (Klor-Con) 40 meq 1X ONCE PO Last administered on 07/12/20at 10:02; Start 07/12/20 at 09:15; Stop 07/12/20 at 09:16; Status DC Potassium Chloride (Klor-Con) 20 meq DAILYWBKFT PO ; Start 07/13/20 at 08:00 Lidocaine (Lidoderm) 1 patch DAILY TD Last administered on 07/12/20at 10:01; Start 07/12/20 at 11:00 Miscellaneous (Lidoderm Patch Removal) 1 ea QHS MC ; Start 07/12/20 at 21:00 Ceftriaxone Sodium (Rocephin) 1 gm Q24H IVP Last administered on 07/12/20at 13:25; Start 07/12/20 at 13:00 Allergies Allergies: Coded Allergies: No Known Drug Allergies (Unverified , 07/11/20) Physical Exam General: Alert, Oriented X3, Cooperative, No acute distress HEENT: PERRLA, Mucous membr. moist/pink Lungs: Clear to auscultation, Normal air movement Heart: Regular rate, Normal S1, Normal S2, No murmurs Abdomen: Normal bowel sounds, Soft, No tenderness, No hepatosplenomegaly, No masses Extremities: No clubbing, No cyanosis, No edema, Normal pulses, No tenderness/swelling Skin: No rashes, No breakdown Neuro: Normal gait, Normal speech, Normal tone, Sensation intact, Reflexes 2+ Psych/Mental Status: Mental status NL, Mood NL Vitals VITALS Vital Signs Date Time Temp Pulse Resp B/P (MAP) Pulse Ox O2 Delivery O2 Flow Rate FiO2 07/12/20 16:04 Room Air 07/12/20 15:00 98.1 100 16 118/75 (89) 98 98.1 Labs Labs Laboratory Tests Test 07/11/20 09:42 07/11/20 09:46 07/12/20 05:45 White Blood Count 6.8 x10^3/uL (4.0-11.0) 9.1 x10^3/uL (4.0-11.0) Red Blood Count 4.57 x10^6/uL (3.50-5.40) 4.15 x10^6/uL (3.50-5.40) Hemoglobin 13.7 g/dL (12.0-15.5) 12.5 g/dL (12.0-15.5) Hematocrit 41.2 % (36.0-47.0) 36.7 % (36.0-47.0) Mean Corpuscular Volume 90 fL (79-100) 89 fL (79-100) Mean Corpuscular Hemoglobin 30 pg (25-35) 30 pg (25-35) Mean Corpuscular Hemoglobin Concent 33 g/dL (31-37) 34 g/dL (31-37) Red Cell Distribution Width 13.7 % (11.5-14.5) 13.8 % (11.5-14.5) Platelet Count 219 x10^3/uL (140-400) 233 x10^3/uL (140-400) Neutrophils (%) (Auto) 77 % (31-73) 80 % (31-73) Lymphocytes (%) (Auto) 17 % (24-48) 15 % (24-48) Monocytes (%) (Auto) 5 % (0-9) 4 % (0-9) Eosinophils (%) (Auto) 1 % (0-3) 1 % (0-3) Basophils (%) (Auto) 1 % (0-3) 1 % (0-3) Neutrophils # (Auto) 5.2 x10^3/uL (1.8-7.7) 7.3 x10^3/uL (1.8-7.7) Lymphocytes # (Auto) 1.1 x10^3/uL (1.0-4.8) 1.4 x10^3/uL (1.0-4.8) Monocytes # (Auto) 0.3 x10^3/uL (0.0-1.1) 0.4 x10^3/uL (0.0-1.1) Eosinophils # (Auto) 0.1 x10^3/uL (0.0-0.7) 0.1 x10^3/uL (0.0-0.7) Basophils # (Auto) 0.0 x10^3/uL (0.0-0.2) 0.1 x10^3/uL (0.0-0.2) Urine Collection Type Unknown Urine Color Yellow Urine Clarity Clear Urine pH 6.0 (<5.0-8.0) Urine Specific [place] >=1.030 (1.000-1.030) Urine Protein Negative mg/dL (NEG-TRACE) Urine Glucose (UA) Negative mg/dL (NEG) Urine Ketones (Stick) Trace mg/dL (NEG) Urine Blood Negative (NEG) Urine Nitrite Negative (NEG) Urine Bilirubin Negative (NEG) Urine Urobilinogen Dipstick 0.2 mg/dL (0.2 mg/dL) Urine Leukocyte Esterase Negative (NEG) Urine RBC 0 /HPF (0-2) Urine WBC 1-4 /HPF (0-4) Urine Squamous Epithelial Cells Mod /LPF Urine Bacteria 0 /HPF (0-FEW) Urine Mucus Mod /LPF Maternal Serum HCG Beta Subunit 663 mIU/mL (0-5) 948 mIU/mL (0-5) Sodium Level 138 mmol/L (136-145) 138 mmol/L (136-145) Potassium Level 3.6 mmol/L (3.5-5.1) 3.3 mmol/L (3.5-5.1) Chloride Level 106 mmol/L (98-107) 104 mmol/L (98-107) Carbon Dioxide Level 20 mmol/L (21-32) 21 mmol/L (21-32) Anion Gap 12 (6-14) 13 (6-14) Blood Urea Nitrogen 9 mg/dL (7-20) 6 mg/dL (7-20) Creatinine 0.7 mg/dL (0.6-1.0) 0.5 mg/dL (0.6-1.0) Estimated GFR (Cockcroft-Gault) 98.9 145.9 Glucose Level 111 mg/dL (70-99) 80 mg/dL (70-99) Calcium Level 8.6 mg/dL (8.5-10.1) 7.7 mg/dL (8.5-10.1) Creatine Kinase 106 U/L (26-192) Bedside Urine HCG, Qualitative Hcg positive (Negative) Phosphorus Level 3.5 mg/dL (2.6-4.7) Magnesium Level 2.0 mg/dL (1.8-2.4) Laboratory Tests Test 07/12/20 05:45 White Blood Count 9.1 x10^3/uL (4.0-11.0) Red Blood Count 4.15 x10^6/uL (3.50-5.40) Hemoglobin 12.5 g/dL (12.0-15.5) Hematocrit 36.7 % (36.0-47.0) Mean Corpuscular Volume 89 fL (79-100) Mean Corpuscular Hemoglobin 30 pg (25-35) Mean Corpuscular Hemoglobin Concent 34 g/dL (31-37) Red Cell Distribution Width 13.8 % (11.5-14.5) Platelet Count 233 x10^3/uL (140-400) Neutrophils (%) (Auto) 80 % (31-73) Lymphocytes (%) (Auto) 15 % (24-48) Monocytes (%) (Auto) 4 % (0-9) Eosinophils (%) (Auto) 1 % (0-3) Basophils (%) (Auto) 1 % (0-3) Neutrophils # (Auto) 7.3 x10^3/uL (1.8-7.7) Lymphocytes # (Auto) 1.4 x10^3/uL (1.0-4.8) Monocytes # (Auto) 0.4 x10^3/uL (0.0-1.1) Eosinophils # (Auto) 0.1 x10^3/uL (0.0-0.7) Basophils # (Auto) 0.1 x10^3/uL (0.0-0.2) Maternal Serum HCG Beta Subunit 948 mIU/mL (0-5) Sodium Level 138 mmol/L (136-145) Potassium Level 3.3 mmol/L (3.5-5.1) Chloride Level 104 mmol/L (98-107) Carbon Dioxide Level 21 mmol/L (21-32) Anion Gap 13 (6-14) Blood Urea Nitrogen 6 mg/dL (7-20) Creatinine 0.5 mg/dL (0.6-1.0) Estimated GFR (Cockcroft-Gault) 145.9 Glucose Level 80 mg/dL (70-99) Calcium Level 7.7 mg/dL (8.5-10.1) Phosphorus Level 3.5 mg/dL (2.6-4.7) Magnesium Level 2.0 mg/dL (1.8-2.4) Assessment/Plan Assessment/Plan Assessment: 30y @ 4.3 by LMP admitted for intractable back pain causing ambulatory dysfunction Recommendations 1.) Positive test Initial quant 663 with rise to 948 after 1 day. Typically in a nml viable the quant will double in 48hrs. Increase seems to extrapolate to expected rise but can repeat quant tomorrow to confirm if necessary. Typically intrauterine is not seen until quant above discriminatory zone (1,200 to 1,500). When pt follows up with primary OB should be far enough along to confirm an intrauterine by u/s. Based on information gathered so far, not likely an ectopic. 2.) Meds safe for Flexeril is a Category B medication. Short term use of Opioids is also acceptable during . Can discharge pt on current regime until she follows up with her primary phlebotomy specialist 3.) H/o removal of uterine septum 4.) Prev C/S x 2 5.) H/o PTD secondary to placenta previa 6.) PCOS 7.) Lower thoracic and lumbosacral sprain improving 8.) Will continue to follow SHRUTHI CRAWFORD MD Jul 12, 2020 16:18
[2020-07-12 19:00] VITALS: BP 108/59
[2020-07-12] MEDS ORDERED: PATCH REMOVAL. MC SCH (21:00)
[2020-07-12 23:00] VITALS: BP 111/66
[2020-07-13 03:00] VITALS: BP 110/66
[2020-07-13] MEDS: MORPHINE SULFATE 2 MG/ML VIAL. IV PRN ×3 (03:17→09:49)
[2020-07-13 06:08] LABS: BASO % 1 % (0-3); EOS # 0.1 x10^3/uL (0.0-0.7); EOS % 1 % (0-3); HEMATOCRIT 35.6 % (36.0-47.0); HEMOGLOBIN 12.2 g/dL (12.0-15.5); LYMPH # 1.8 x10^3/uL (1.0-4.8); LYMPH % 25 % (24-48); MEAN CORPUSCULAR HEMOGLOBIN 30 pg (25-35); MEAN CORPUSCULAR HGB CONC 34 g/dL (31-37); MEAN CORPUSCULAR VOLUME 88 fL (79-100); MONO # 0.4 x10^3/uL (0.0-1.1); MONO % 6 % (0-9); NEUT # 4.8 x10^3/uL (1.8-7.7); NEUT % 67 % (31-73); PLATELET COUNT 213 x10^3/uL (140-400); RED BLOOD COUNT 4.06 x10^6/uL (3.50-5.40); RED CELL DISTRIBUTION WIDTH 13.8 % (11.5-14.5); WHITE BLOOD COUNT 7.1 x10^3/uL (4.0-11.0)
[2020-07-13 06:25] LABS: CALCIUM 8.3 mg/dL (8.5-10.1); CREATININE 0.6 mg/dL (0.6-1.0); GFR 118.2; POTASSIUM 3.5 mmol/L (3.5-5.1)
[2020-07-13 07:00] VITALS: BP 103/66
[2020-07-13] MEDS ORDERED: POTASSIUM CHLORIDE 20 MEQ TABLET.ER. PO SCH (08:00)
[2020-07-13] MEDS: LIDOCAINE (700MG/PATCH) PATCH. TD SCH (08:43)
--- NOTE | 2020-07-13 08:51 | PDOC ---
PROGRESS NOTES Date of Service: DATE: 07/13/20 TIME: 08:51 Chief Complaint Chief Complaint Images: Images PELVIC US Impression: Thickened endometrial stripe measuring 1.9 cm without gestational sac identified. No ectopic identified. This is a of unknown location. Differential includes early intrauterine , early ectopic and failed . Recommend close clinical and ultrasound follow- up. No acute pelvic findings. Assessment/Plan Assessment/Plan Intractable back pain causing ambulatory dysfunction Low HCO3 HYPOKALEMIA ON REPLACEMENT typically intrauterine is not seen until quant above discriminatory zone (1,200 to 1,500). plan Admit to medicine for observation IV morphine for pain control d/c start lortab Flexeril for pain control Rehab consult reviewed PT OT Ambulation for DVT prophylaxis Regular diet Full code Discussed with RN and SW Disposition ok with Dr. Fitzpatrick Surrogate decision maker is the HOUSING ASSISTANT PROPERTY MANAGER CONSULT Differential includes early intrauterine , early ectopic and failed . 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 30 year old F with past medical history of kidney stones about 6 months ago who presents to the emergency department complaint of new onset of back pain. Patient states that approximate 30 minutes prior to arrival she was bending over to, type her back for her baby when she felt a popping sensation in her lower lumbar region in the center and then noted pain radiating down bilateral buttocks. Patient states that since that time she is been having intermittent spasming pain that is primarily in the central region but slightly more on the right than on the left. Denies any numbness or weakness in the lower extremities but does state that both her feet feel cool. Also denies any b ladder or bowel incontinence. Denies any falls or other injuries to the area. Denies any history of similar symptoms. Patient does have a history of multiple fractures requiring surgical repair and is a history of section. Denies any fever, chills, nausea, vomiting, dizziness or lightheadedness. sono reviewed Past Medical/Surgical History: PMH/PSH: Past Medical History: Kidney Stone, ARM FX, UTERINE FIB Past Surgical History: Allergies: Allergies: Coded Allergies: No Known Drug Allergies (Unverified , 07/11/20) Family History: Family History: Reviewed with no relevant findings Social History: Social History: Smoking Status: Never Smoker Alcohol Use: None Current Medications: Current Medications Current Medications Ketorolac Tromethamine (Toradol 15mg Vial) 15 mg 1X ONCE IVP Last administered on 07/11/20at 08:44; Start 07/11/20 at 08:30; Stop 07/11/20 at 08:35; Status DC Sodium Chloride 1,000 ml @ 1,000 mls/hr 1X ONCE IV Last administered on 07/11/20at 08:44; Start 07/11/20 at 08:30; Stop 07/11/20 at 09:29; Status DC Diazepam (Valium) 5 mg 1X ONCE PO Last administered on 07/11/20at 08:45; Start 07/11/20 at 08:30; Stop 07/11/20 at 08:35; Status DC Morphine Sulfate (Morphine Sulfate) 4 mg 1X ONCE IV Last administered on at 09:38; Start 07/11/20 at 09:30; Stop 07/11/20 at 09:31; Status DC ROS: Review of Systems Review of System REVIEW OF SYSTEMS: GENERAL: Denies weakness SKIN: No bruising, hair changes or rashes. EYES: No blurred, double or loss of vision. NOSE AND THROAT: No history of nosebleeds, hoarseness or sore throat. HEART: No history of palpitations, chest pain or shortness of breath on exertion. LUNGS: Denies cough, hemoptysis, wheezing or shortness of breath. GASTROINTESTINAL: Denies changes in appetite, nausea, vomiting, diarrhea or constipation. GENITOURINARY: No history of frequency, urgency, hesitancy or nocturia. NEUROLOGIC: Denies history of numbness, tingling, or tremor. PSYCHIATRIC: No history of panic, anxiety or depression. ENDOCRINE: No history of heat or cold intolerance, polyuria or polydipsia. EXTREMITIES: Denies joint pain, pain on walking or stiffness. Vitals Vitals Vital Signs Date Time Temp Pulse Resp B/P (MAP) Pulse Ox O2 Delivery O2 Flow Rate FiO2 07/13/20 07:00 98.4 88 18 103/66 (78) 95 Room Air 98.4 Physical Exam Physical Exam Physcial Exam: GEN: No apparent distress. Alert and oriented HEENT: Normal cephalic, atraumatic, external auditory canals are patent EYES: Extraocular muscles are intact, pupil are equally round and reactive to light and accommodation MUSCULOSKELETAL: Limited range of motion in and back. No step-offs or point tenderness in the midline of the spine. ENDOCRINE: No thyromegaly was palpated LYMPHATICS: No cervical chain or axillary nodes were noted HEMATOPOIETIC: No bruising NECK: Supple, no JVD, no thyromegaly was noted LUNGS: Clear to auscultation in all lung lepe without rhonchi or wheezing HEART: RRR, S!, S2 present. Peripheral pulses intact, no obvious murmurs noted ABDOMEN: Soft, nontender. Positive bowel sounds, no organomegaly, normal bowel sounds EXTREMITIES: Patient unable to elevate extremities without assistance. NEUROLOGIC: Normal speech and tone. A&O x 3, moves all extremities, no obvious focal deficits PSYCHIATRIC: Normal affect, normal mood. Stable SKIN: No ulcerations or rashes, good skin turgor, no jaundice VASCULAR: Good capillary refill, neurovascular bundle appears to be intact General: Alert, Oriented X3, Cooperative, No acute distress Heart: Regular rate, Normal S1, Normal S2, No murmurs Lungs: Clear Abdomen: Normal bowel sounds, Soft, No tenderness, No hepatosplenomegaly, No masses Extremities: No clubbing, No cyanosis, No edema, Normal pulses, No tenderness/swelling Skin: No rashes, No breakdown Labs LABS Laboratory Tests Test 07/13/20 05:45 White Blood Count 7.1 x10^3/uL (4.0-11.0) Red Blood Count 4.06 x10^6/uL (3.50-5.40) Hemoglobin 12.2 g/dL (12.0-15.5) Hematocrit 35.6 % (36.0-47.0) Mean Corpuscular Volume 88 fL (79-100) Mean Corpuscular Hemoglobin 30 pg (25-35) Mean Corpuscular Hemoglobin Concent 34 g/dL (31-37) Red Cell Distribution Width 13.8 % (11.5-14.5) Platelet Count 213 x10^3/uL (140-400) Neutrophils (%) (Auto) 67 % (31-73) Lymphocytes (%) (Auto) 25 % (24-48) Monocytes (%) (Auto) 6 % (0-9) Eosinophils (%) (Auto) 1 % (0-3) Basophils (%) (Auto) 1 % (0-3) Neutrophils # (Auto) 4.8 x10^3/uL (1.8-7.7) Lymphocytes # (Auto) 1.8 x10^3/uL (1.0-4.8) Monocytes # (Auto) 0.4 x10^3/uL (0.0-1.1) Eosinophils # (Auto) 0.1 x10^3/uL (0.0-0.7) Basophils # (Auto) 0.0 x10^3/uL (0.0-0.2) Sodium Level 139 mmol/L (136-145) Potassium Level 3.5 mmol/L (3.5-5.1) Chloride Level 105 mmol/L (98-107) Carbon Dioxide Level 21 mmol/L (21-32) Anion Gap 13 (6-14) Blood Urea Nitrogen 7 mg/dL (7-20) Creatinine 0.6 mg/dL (0.6-1.0) Estimated GFR (Cockcroft-Gault) 118.2 Glucose Level 101 mg/dL (70-99) Calcium Level 8.3 mg/dL (8.5-10.1) Assessment and Plan Assessmemt and Plan Problems Medical Problems: (1) Back strain Status: Acute Comment Review of Relevant I have reviewed the following items jonas (where applicable) has been applied. Labs Laboratory Tests Test 07/11/20 09:42 07/11/20 09:46 07/12/20 05:45 07/13/20 05:45 White Blood Count 6.8 x10^3/uL (4.0-11.0) 9.1 x10^3/uL (4.0-11.0) 7.1 x10^3/uL (4.0-11.0) Red Blood Count 4.57 x10^6/uL (3.50-5.40) 4.15 x10^6/uL (3.50-5.40) 4.06 x10^6/uL (3.50-5.40) Hemoglobin 13.7 g/dL (12.0-15.5) 12.5 g/dL (12.0-15.5) 12.2 g/dL (12.0-15.5) Hematocrit 41.2 % (36.0-47.0) 36.7 % (36.0-47.0) 35.6 % (36.0-47.0) Mean Corpuscular Volume 90 fL (79-100) 89 fL (79-100) 88 fL (79-100) Mean Corpuscular Hemoglobin 30 pg (25-35) 30 pg (25-35) 30 pg (25-35) Mean Corpuscular Hemoglobin Concent 33 g/dL (31-37) 34 g/dL (31-37) 34 g/dL (31-37) Red Cell Distribution Width 13.7 % (11.5-14.5) 13.8 % (11.5-14.5) 13.8 % (11.5-14.5) Platelet Count 219 x10^3/uL (140-400) 233 x10^3/uL (140-400) 213 x10^3/uL (140-400) Neutrophils (%) (Auto) 77 % (31-73) 80 % (31-73) 67 % (31-73) Lymphocytes (%) (Auto) 17 % (24-48) 15 % (24-48) 25 % (24-48) Monocytes (%) (Auto) 5 % (0-9) 4 % (0-9) 6 % (0-9) Eosinophils (%) (Auto) 1 % (0-3) 1 % (0-3) 1 % (0-3) Basophils (%) (Auto) 1 % (0-3) 1 % (0-3) 1 % (0-3) Neutrophils # (Auto) 5.2 x10^3/uL (1.8-7.7) 7.3 x10^3/uL (1.8-7.7) 4.8 x10^3/uL (1.8-7.7) Lymphocytes # (Auto) 1.1 x10^3/uL (1.0-4.8) 1.4 x10^3/uL (1.0-4.8) 1.8 x10^3/uL (1.0-4.8) Monocytes # (Auto) 0.3 x10^3/uL (0.0-1.1) 0.4 x10^3/uL (0.0-1.1) 0.4 x10^3/uL (0.0-1.1) Eosinophils # (Auto) 0.1 x10^3/uL (0.0-0.7) 0.1 x10^3/uL (0.0-0.7) 0.1 x10^3/uL (0.0-0.7) Basophils # (Auto) 0.0 x10^3/uL (0.0-0.2) 0.1 x10^3/uL (0.0-0.2) 0.0 x10^3/uL (0.0-0.2) Urine Collection Type Unknown Urine Color Yellow Urine Clarity Clear Urine pH 6.0 (<5.0-8.0) Urine Specific [place] >=1.030 (1.000-1.030) Urine Protein Negative mg/dL (NEG-TRACE) Urine Glucose (UA) Negative mg/dL (NEG) Urine Ketones (Stick) Trace mg/dL (NEG) Urine Blood Negative (NEG) Urine Nitrite Negative (NEG) Urine Bilirubin Negative (NEG) Urine Urobilinogen Dipstick 0.2 mg/dL (0.2 mg/dL) Urine Leukocyte Esterase Negative (NEG) Urine RBC 0 /HPF (0-2) Urine WBC 1-4 /HPF (0-4) Urine Squamous Epithelial Cells Mod /LPF Urine Bacteria 0 /HPF (0-FEW) Urine Mucus Mod /LPF Maternal Serum HCG Beta Subunit 663 mIU/mL (0-5) 948 mIU/mL (0-5) Sodium Level 138 mmol/L (136-145) 138 mmol/L (136-145) 139 mmol/L (136-145) Potassium Level 3.6 mmol/L (3.5-5.1) 3.3 mmol/L (3.5-5.1) 3.5 mmol/L (3.5-5.1) Chloride Level 106 mmol/L (98-107) 104 mmol/L (98-107) 105 mmol/L (98-107) Carbon Dioxide Level 20 mmol/L (21-32) 21 mmol/L (21-32) 21 mmol/L (21-32) Anion Gap 12 (6-14) 13 (6-14) 13 (6-14) Blood Urea Nitrogen 9 mg/dL (7-20) 6 mg/dL (7-20) 7 mg/dL (7-20) Creatinine 0.7 mg/dL (0.6-1.0) 0.5 mg/dL (0.6-1.0) 0.6 mg/dL (0.6-1.0) Estimated GFR (Cockcroft-Gault) 98.9 145.9 118.2 Glucose Level 111 mg/dL (70-99) 80 mg/dL (70-99) 101 mg/dL (70-99) Calcium Level 8.6 mg/dL (8.5-10.1) 7.7 mg/dL (8.5-10.1) 8.3 mg/dL (8.5-10.1) Creatine Kinase 106 U/L (26-192) Bedside Urine HCG, Qualitative Hcg positive (Negative) Phosphorus Level 3.5 mg/dL (2.6-4.7) Magnesium Level 2.0 mg/dL (1.8-2.4) Laboratory Tests Test 07/13/20 05:45 White Blood Count 7.1 x10^3/uL (4.0-11.0) Red Blood Count 4.06 x10^6/uL (3.50-5.40) Hemoglobin 12.2 g/dL (12.0-15.5) Hematocrit 35.6 % (36.0-47.0) Mean Corpuscular Volume 88 fL (79-100) Mean Corpuscular Hemoglobin 30 pg (25-35) Mean Corpuscular Hemoglobin Concent 34 g/dL (31-37) Red Cell Distribution Width 13.8 % (11.5-14.5) Platelet Count 213 x10^3/uL (140-400) Neutrophils (%) (Auto) 67 % (31-73) Lymphocytes (%) (Auto) 25 % (24-48) Monocytes (%) (Auto) 6 % (0-9) Eosinophils (%) (Auto) 1 % (0-3) Basophils (%) (Auto) 1 % (0-3) Neutrophils # (Auto) 4.8 x10^3/uL (1.8-7.7) Lymphocytes # (Auto) 1.8 x10^3/uL (1.0-4.8) Monocytes # (Auto) 0.4 x10^3/uL (0.0-1.1) Eosinophils # (Auto) 0.1 x10^3/uL (0.0-0.7) Basophils # (Auto) 0.0 x10^3/uL (0.0-0.2) Sodium Level 139 mmol/L (136-145) Potassium Level 3.5 mmol/L (3.5-5.1) Chloride Level 105 mmol/L (98-107) Carbon Dioxide Level 21 mmol/L (21-32) Anion Gap 13 (6-14) Blood Urea Nitrogen 7 mg/dL (7-20) Creatinine 0.6 mg/dL (0.6-1.0) Estimated GFR (Cockcroft-Gault) 118.2 Glucose Level 101 mg/dL (70-99) Calcium Level 8.3 mg/dL (8.5-10.1) Microbiology 07/11/20 Urine Culture - Final, Complete Medications Current Medications Ketorolac Tromethamine (Toradol 15mg Vial) 15 mg 1X ONCE IVP Last administered on 07/11/20at 08:44; Start 07/11/20 at 08:30; Stop 07/11/20 at 08:35; Status DC Sodium Chloride 1,000 ml @ 1,000 mls/hr 1X ONCE IV Last administered on 07/11/20at 08:44; Start 07/11/20 at 08:30; Stop 07/11/20 at 09:29; Status DC Diazepam (Valium) 5 mg 1X ONCE PO Last administered on 07/11/20at 08:45; Start 07/11/20 at 08:30; Stop 07/11/20 at 08:35; Status DC Morphine Sulfate (Morphine Sulfate) 4 mg 1X ONCE IV Last administered on 07/11/20at 09:38; Start 07/11/20 at 09:30; Stop 07/11/20 at 09:31; Status DC Cyclobenzaprine HCl (Flexeril) 10 mg PRN TID PRN PO MUSCLE SPASMS Last administered on 07/12/20at 07:47; Start 07/11/20 at 15:00; Stop 07/12/20 at 12:36; Status DC Morphine Sulfate (Morphine Sulfate) 2 mg PRN Q2HR PRN IV PAIN Last administered on 07/13/20at 06:49; Start 07/11/20 at 15:00 Sennosides (Senna) 17.2 mg PRN BID PRN PO CONSTIPATION Last administered on 07/12/20at 19:53; Start 07/11/20 at 16:00 Docusate Sodium (Colace) 100 mg PRN DAILY PRN PO HARD STOOLS; Start 07/11/20 at 16:00 Ondansetron HCl (Zofran) 4 mg PRN Q6HRS PRN IVP NAUSEA/VOMITING; Start 07/11/20 at 16:00 Dextrose (Dextrose 50%-Water Syringe) 12.5 gm PRN Q15MIN PRN IV SEE COMMENTS; Start 07/11/20 at 16:00 Acetaminophen (Tylenol) 650 mg PRN Q4HRS PRN PO TEMP OVER 100.4F OR MILD PAIN; Start 07/11/20 at 16:00 Morphine Sulfate (Morphine Sulfate) 1 mg PRN Q1HR PRN IV PAIN; Start 07/11/20 at 16:00 Potassium Chloride (Klor-Con) 40 meq 1X ONCE PO Last administered on 07/12/20at 10:02; Start 07/12/20 at 09:15; Stop 07/12/20 at 09:16; Status DC Potassium Chloride (Klor-Con) 20 meq [id number] PO Last administered on 07/13/20at 08:42; Start 07/13/20 at 08:00 Lidocaine (Lidoderm) 1 patch DAILY TD Last administered on 07/13/20at 08:43; Start 07/12/20 at 11:00 Miscellaneous (Lidoderm Patch Removal) 1 ea QHS MC ; Start 07/12/20 at 21:00 Ceftriaxone Sodium (Rocephin) 1 gm Q24H IVP Last administered on 07/12/20at 13:25; Start 07/12/20 at 13:00 Vitals/I & O Vital Sign - Last 24 Hours 07/12/20 07/12/20 07/12/20 07/12/20 10:02 10:32 11:00 13:25 Temp 97.9 97.9 Pulse 84 Resp 18 B/P (MAP) 112/66 (81) Pulse Ox 96 O2 Delivery Room Air Room Air Room Air Room Air 07/12/20 07/12/20 07/12/20 07/12/20 13:55 15:00 16:04 16:34 Temp 98.1 98.1 Pulse 100 Resp 16 B/P (MAP) 118/75 (89) Pulse Ox 98 O2 Delivery Room Air Room Air Room Air Room Air 07/12/20 07/12/20 07/12/20 07/12/20 19:00 19:53 20:00 20:23 Temp 98.1 98.1 Pulse 104 Resp 16 20 B/P (MAP) 108/59 (75) Pulse Ox 97 98 96 O2 Delivery Room Air Room Air Room Air Room Air 07/12/20 07/12/20 07/12/20 07/13/20 23:00 23:11 23:41 03:00 Temp 98.2 97.9 98.2 97.9 Pulse 98 79 Resp 16 20 20 16 B/P (MAP) 111/66 (81) 110/66 (81) Pulse Ox 95 98 96 96 O2 Delivery Room Air Room Air Room Air Room Air 07/13/20 07/13/20 07/13/20 07/13/20 03:17 03:47 06:49 07:00 Temp 98.4 98.4 Pulse 88 Resp 20 20 20 18 B/P (MAP) 103/66 (78) Pulse Ox 96 96 96 95 O2 Delivery Room Air Room Air Room Air Room Air Intake and Output 07/12/20 07/12/20 07/13/20 15:00 23:00 07:00 Intake Total 500 ml 300 ml Output Total 0 ml Balance 500 ml 300 ml Justicifation of Admission Dx: Justifications for Admission: Justification of Admission Dx: FILIBERTO Underwood MD Jul 13, 2020 08:51
--- NOTE | 2020-07-13 09:26 | PDOC ---
PROGRESS NOTES Date of Service DATE: 07/13/20 TIME: 09:22 Subjective Subjective She feels stiff in her low back pain is less and her OBGYN allowed her to take hydrocodone for pain control. Objective Objective Vital Signs Date Time Temp Pulse Resp B/P (MAP) Pulse Ox O2 Delivery O2 Flow Rate FiO2 07/13/20 07:19 Room Air 07/13/20 07:00 98.4 88 18 103/66 (78) 95 98.4 Intake and Output 07/13/20 07:00 Intake Total 800 ml Output Total 0 ml Balance 800 ml Intake Oral 800 ml Output Urine Total 0 ml # Voids 5 Physical Exam Physical Exam She is sitting up in bedside chair and had abdominal binder in place and seems to be in no acute distress. She continues with tenderness to palpation over lower thoracic and lumbar spine and adjoining paraspinal muscles and sacroiliac joint area and painfully limited lumbar spine ROM. No change with her neurological status. Assessment Assessment Problems Medical Problems: (1) Back strain Status: Acute Plan Plan of Mcfp today with roller walker and out patient follow up. Comment Review of Relevant I have reviewed the following items jonas (where applicable) has been applied. Labs Laboratory Tests Test 07/11/20 09:42 07/11/20 09:46 07/12/20 05:45 07/13/20 05:45 White Blood Count 6.8 x10^3/uL (4.0-11.0) 9.1 x10^3/uL (4.0-11.0) 7.1 x10^3/uL (4.0-11.0) Red Blood Count 4.57 x10^6/uL (3.50-5.40) 4.15 x10^6/uL (3.50-5.40) 4.06 x10^6/uL (3.50-5.40) Hemoglobin 13.7 g/dL (12.0-15.5) 12.5 g/dL (12.0-15.5) 12.2 g/dL (12.0-15.5) Hematocrit 41.2 % (36.0-47.0) 36.7 % (36.0-47.0) 35.6 % (36.0-47.0) Mean Corpuscular Volume 90 fL (79-100) 89 fL (79-100) 88 fL (79-100) Mean Corpuscular Hemoglobin 30 pg (25-35) 30 pg (25-35) 30 pg (25-35) Mean Corpuscular Hemoglobin Concent 33 g/dL (31-37) 34 g/dL (31-37) 34 g/dL (31-37) Red Cell Distribution Width 13.7 % (11.5-14.5) 13.8 % (11.5-14.5) 13.8 % (11.5-14.5) Platelet Count 219 x10^3/uL (140-400) 233 x10^3/uL (140-400) 213 x10^3/uL (140-400) Neutrophils (%) (Auto) 77 % (31-73) 80 % (31-73) 67 % (31-73) Lymphocytes (%) (Auto) 17 % (24-48) 15 % (24-48) 25 % (24-48) Monocytes (%) (Auto) 5 % (0-9) 4 % (0-9) 6 % (0-9) Eosinophils (%) (Auto) 1 % (0-3) 1 % (0-3) 1 % (0-3) Basophils (%) (Auto) 1 % (0-3) 1 % (0-3) 1 % (0-3) Neutrophils # (Auto) 5.2 x10^3/uL (1.8-7.7) 7.3 x10^3/uL (1.8-7.7) 4.8 x10^3/uL (1.8-7.7) Lymphocytes # (Auto) 1.1 x10^3/uL (1.0-4.8) 1.4 x10^3/uL (1.0-4.8) 1.8 x10^3/uL (1.0-4.8) Monocytes # (Auto) 0.3 x10^3/uL (0.0-1.1) 0.4 x10^3/uL (0.0-1.1) 0.4 x10^3/uL (0.0-1.1) Eosinophils # (Auto) 0.1 x10^3/uL (0.0-0.7) 0.1 x10^3/uL (0.0-0.7) 0.1 x10^3/uL (0.0-0.7) Basophils # (Auto) 0.0 x10^3/uL (0.0-0.2) 0.1 x10^3/uL (0.0-0.2) 0.0 x10^3/uL (0.0-0.2) Urine Collection Type Unknown Urine Color Yellow Urine Clarity Clear Urine pH 6.0 (<5.0-8.0) Urine Specific Bradford >=1.030 (1.000-1.030) Urine Protein Negative mg/dL (NEG-TRACE) Urine Glucose (UA) Negative mg/dL (NEG) Urine Ketones (Stick) Trace mg/dL (NEG) Urine Blood Negative (NEG) Urine Nitrite Negative (NEG) Urine Bilirubin Negative (NEG) Urine Urobilinogen Dipstick 0.2 mg/dL (0.2 mg/dL) Urine Leukocyte Esterase Negative (NEG) Urine RBC 0 /HPF (0-2) Urine WBC 1-4 /HPF (0-4) Urine Squamous Epithelial Cells Mod /LPF Urine Bacteria 0 /HPF (0-FEW) Urine Mucus Mod /LPF Maternal Serum HCG Beta Subunit 663 mIU/mL (0-5) 948 mIU/mL (0-5) Sodium Level 138 mmol/L (136-145) 138 mmol/L (136-145) 139 mmol/L (136-145) Potassium Level 3.6 mmol/L (3.5-5.1) 3.3 mmol/L (3.5-5.1) 3.5 mmol/L (3.5-5.1) Chloride Level 106 mmol/L (98-107) 104 mmol/L (98-107) 105 mmol/L (98-107) Carbon Dioxide Level 20 mmol/L (21-32) 21 mmol/L (21-32) 21 mmol/L (21-32) Anion Gap 12 (6-14) 13 (6-14) 13 (6-14) Blood Urea Nitrogen 9 mg/dL (7-20) 6 mg/dL (7-20) 7 mg/dL (7-20) Creatinine 0.7 mg/dL (0.6-1.0) 0.5 mg/dL (0.6-1.0) 0.6 mg/dL (0.6-1.0) Estimated GFR (Cockcroft-Gault) 98.9 145.9 118.2 Glucose Level 111 mg/dL (70-99) 80 mg/dL (70-99) 101 mg/dL (70-99) Calcium Level 8.6 mg/dL (8.5-10.1) 7.7 mg/dL (8.5-10.1) 8.3 mg/dL (8.5-10.1) Creatine Kinase 106 U/L (26-192) Bedside Urine HCG, Qualitative Hcg positive (Negative) Phosphorus Level 3.5 mg/dL (2.6-4.7) Magnesium Level 2.0 mg/dL (1.8-2.4) Laboratory Tests Test 07/13/20 05:45 White Blood Count 7.1 x10^3/uL (4.0-11.0) Red Blood Count 4.06 x10^6/uL (3.50-5.40) Hemoglobin 12.2 g/dL (12.0-15.5) Hematocrit 35.6 % (36.0-47.0) Mean Corpuscular Volume 88 fL (79-100) Mean Corpuscular Hemoglobin 30 pg (25-35) Mean Corpuscular Hemoglobin Concent 34 g/dL (31-37) Red Cell Distribution Width 13.8 % (11.5-14.5) Platelet Count 213 x10^3/uL (140-400) Neutrophils (%) (Auto) 67 % (31-73) Lymphocytes (%) (Auto) 25 % (24-48) Monocytes (%) (Auto) 6 % (0-9) Eosinophils (%) (Auto) 1 % (0-3) Basophils (%) (Auto) 1 % (0-3) Neutrophils # (Auto) 4.8 x10^3/uL (1.8-7.7) Lymphocytes # (Auto) 1.8 x10^3/uL (1.0-4.8) Monocytes # (Auto) 0.4 x10^3/uL (0.0-1.1) Eosinophils # (Auto) 0.1 x10^3/uL (0.0-0.7) Basophils # (Auto) 0.0 x10^3/uL (0.0-0.2) Sodium Level 139 mmol/L (136-145) Potassium Level 3.5 mmol/L (3.5-5.1) Chloride Level 105 mmol/L (98-107) Carbon Dioxide Level 21 mmol/L (21-32) Anion Gap 13 (6-14) Blood Urea Nitrogen 7 mg/dL (7-20) Creatinine 0.6 mg/dL (0.6-1.0) Estimated GFR (Cockcroft-Gault) 118.2 Glucose Level 101 mg/dL (70-99) Calcium Level 8.3 mg/dL (8.5-10.1) Microbiology 07/11/20 Urine Culture - Final, Complete Medications Current Medications Ketorolac Tromethamine (Toradol 15mg Vial) 15 mg 1X ONCE IVP Last administered on 07/11/20at 08:44; Start 07/11/20 at 08:30; Stop 07/11/20 at 08:35; Status DC Sodium Chloride 1,000 ml @ 1,000 mls/hr 1X ONCE IV Last administered on 07/11/20at 08:44; Start 07/11/20 at 08:30; Stop 07/11/20 at 09:29; Status DC Diazepam (Valium) 5 mg 1X ONCE PO Last administered on 07/11/20at 08:45; Start 07/11/20 at 08:30; Stop 07/11/20 at 08:35; Status DC Morphine Sulfate (Morphine Sulfate) 4 mg 1X ONCE IV Last administered on 07/11/20at 09:38; Start 07/11/20 at 09:30; Stop 07/11/20 at 09:31; Status DC Cyclobenzaprine HCl (Flexeril) 10 mg PRN TID PRN PO MUSCLE SPASMS Last administered on 07/12/20at 07:47; Start 07/11/20 at 15:00; Stop 07/12/20 at 12:36; Status DC Morphine Sulfate (Morphine Sulfate) 2 mg PRN Q2HR PRN IV PAIN Last administered on 07/13/20at 06:49; Start 07/11/20 at 15:00 Sennosides (Senna) 17.2 mg PRN BID PRN PO CONSTIPATION Last administered on 07/12/20at 19:53; Start 07/11/20 at 16:00 Docusate Sodium (Colace) 100 mg PRN DAILY PRN PO HARD STOOLS; Start 07/11/20 at 16:00 Ondansetron HCl (Zofran) 4 mg PRN Q6HRS PRN IVP NAUSEA/VOMITING; Start 07/11/20 at 16:00 Dextrose (Dextrose 50%-Water Syringe) 12.5 gm PRN Q15MIN PRN IV SEE COMMENTS; Start 07/11/20 at 16:00 Acetaminophen (Tylenol) 650 mg PRN Q4HRS PRN PO TEMP OVER 100.4F OR MILD PAIN; Start 07/11/20 at 16:00 Morphine Sulfate (Morphine Sulfate) 1 mg PRN Q1HR PRN IV PAIN; Start 07/11/20 at 16:00 Potassium Chloride (Klor-Con) 40 meq 1X ONCE PO Last administered on 07/12/20at 10:02; Start 07/12/20 at 09:15; Stop 07/12/20 at 09:16; Status DC Potassium Chloride (Klor-Con) 20 meq DAILYWBKFT PO Last administered on 07/13/20at 08:42; Start 07/13/20 at 08:00 Lidocaine (Lidoderm) 1 patch DAILY TD Last administered on 07/13/20at 08:43; Start 07/12/20 at 11:00 Miscellaneous (Lidoderm Patch Removal) 1 ea QHS [facility] ; Start 07/12/20 at 21:00 Ceftriaxone Sodium (Rocephin) 1 gm Q24H IVP Last administered on 07/12/20at 13:25; Start 07/12/20 at 13:00 Vitals/I & O Vital Sign - Last 24 Hours 07/12/20 07/12/20 07/12/20 07/12/20 10:02 10:32 11:00 13:25 Temp 97.9 97.9 Pulse 84 Resp 18 B/P (MAP) 112/66 (81) Pulse Ox 96 O2 Delivery Room Air Room Air Room Air Room Air 07/12/20 07/12/20 07/12/20 07/12/20 13:55 15:00 16:04 16:34 Temp 98.1 98.1 Pulse 100 Resp 16 B/P (MAP) 118/75 (89) Pulse Ox 98 O2 Delivery Room Air Room Air Room Air Room Air 07/12/20 07/12/20 07/12/20 07/12/20 19:00 19:53 20:00 20:23 Temp 98.1 98.1 Pulse 104 Resp 16 20 B/P (MAP) 108/59 (75) Pulse Ox 97 98 96 O2 Delivery Room Air Room Air Room Air Room Air 07/12/20 07/12/20 07/12/20 07/13/20 23:00 23:11 23:41 03:00 Temp 98.2 97.9 98.2 97.9 Pulse 98 79 Resp 16 20 20 16 B/P (MAP) 111/66 (81) 110/66 (81) Pulse Ox 95 98 96 96 O2 Delivery Room Air Room Air Room Air Room Air 07/13/20 07/13/20 07/13/20 07/13/20 03:17 03:47 06:49 07:00 Temp 98.4 98.4 Pulse 88 Resp 20 20 20 18 B/P (MAP) 103/66 (78) Pulse Ox 96 96 96 95 O2 Delivery Room Air Room Air Room Air Room Air 07/13/20 07:19 O2 Delivery Room Air Intake and Output 07/12/20 07/12/20 07/13/20 15:00 23:00 07:00 Intake Total 500 ml 300 ml Output Total 0 ml Balance 500 ml 300 ml Justifications for Admission Other Justification Ambulatory dysfunction MALGORZATA WHITE MD Jul 13, 2020 09:26
--- NOTE | 2020-07-13 09:49 | PDOC3 ---
Discharge Summary Date of Admission: Jul 11, 2020 Date of Discharge: Jul 13, 2020 Follow-Up: 3-5 days Admitting Diagnosis comment: Chief Complaint Chief Complaint Images: Images PELVIC US Impression: Thickened endometrial stripe measuring 1.9 cm without gestational sac identified. No ectopic identified. This is a of unknown location. Differential includes early intrauterine , early ectopic and failed . Recommend close clinical and ultrasound follow- up. No acute pelvic findings. consults OBGYN, REHAB COMPLICATIONS NONE D/C CONDITION GOOD PROGNOSIS EXCELLENT F/U WITH HER OB ROSIO SATURDAY D/C MEDS SEE JUN discharge dx Assessment/Plan Intractable back pain causing ambulatory dysfunction, improving , MECHANICAL HYPOKALEMIA ON REPLACEMENT typically intrauterine is not seen until quant above discriminatory zone (1,200 to 1,500). POSSIBLE UTI plan Admit to medicine for observation IV morphine for pain control d/c start lortab Flexeril for pain control Rehab consult reviewed vit daily PT OT Ambulation for DVT prophylaxis Regular diet Full code Discussed with RN and SW Disposition ok with Dr. Fitzpatrick Surrogate decision maker is the HAND OR MACHINE PASTER CONSULT Differential includes early intrauterine , early ectopic and failed . 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 30 year old F with past medical history of kidney stones about 6 months ago who presents to the emergency department complaint of new onset of back pain. Patient states that approximate 30 minutes prior to arrival she was bending over to, type her back for her baby when she felt a popping sensation in her lower lumbar region in the center and then noted pain radiating down bilateral buttocks. Patient states that since that time she is been having intermittent spasming pain that is primarily in the central region but slightly more on the right than on the left. Denies any numbness or weakness in the lower extremities but does state that both her feet feel cool. Also denies any bladder or bowel incontinence. Denies any falls or other injuries to the area. Denies any history of similar symptoms. Patient does have a history of multiple fractures requiring surgical repair and is a history of section. Denies any fever, chills, nausea, vomiting, dizziness or lightheadedness. cem reviewed Past Medical/Surgical History: PMH/PSH: Past Medical History: Kidney Stone, ARM FX, UTERINE FIB Past Surgical History: Allergies: Allergies: Coded Allergies: No Known Drug Allergies (Unverified , 07/11/20) Family History: Family History: Reviewed with no relevant findings Social History: Social History: Smoking Status: Never Smoker Alcohol Use: None Current Medications: Current Medications Current Medications Ketorolac Tromethamine (Toradol 15mg Vial) 15 mg 1X ONCE IVP Last administered on 07/11/20at 08:44; Start 07/11/20 at 08:30; Stop 07/11/20 at 08:35; Status DC Sodium Chloride 1,000 ml @ 1,000 mls/hr 1X ONCE IV Last administered on 07/11/20at 08:44; Start 07/11/20 at 08:30; Stop 07/11/20 at 09:29; Status DC Diazepam (Valium) 5 mg 1X ONCE PO Last administered on 07/11/20at 08:45; Start 07/11/20 at 08:30; Stop 07/11/20 at 08:35; Status DC Morphine Sulfate (Morphine Sulfate) 4 mg 1X ONCE IV Last administered on 07/11/20at 09:38; Start 07/11/20 at 09:30; Stop 07/11/20 at 09:31; Status DC ROS: Review of Systems Review of System REVIEW OF SYSTEMS: GENERAL: Denies weakness SKIN: No bruising, hair changes or rashes. EYES: No blurred, double or loss of vision. NOSE AND THROAT: No history of nosebleeds, hoarseness or sore throat. HEART: No history of palpitations, chest pain or shortness of breath on exertion. LUNGS: Denies cough, hemoptysis, wheezing or shortness of breath. GASTROINTESTINAL: Denies changes in appetite, nausea, vomiting, diarrhea or constipation. GENITOURINARY: No history of frequency, urgency, hesitancy or nocturia. NEUROLOGIC: Denies history of numbness, tingling, or tremor. PSYCHIATRIC: No history of panic, anxiety or depression. ENDOCRINE: No history of heat or cold intolerance, polyuria or polydipsia. EXTREMITIES: Denies joint pain, pain on walking or stiffness. Vitals Vitals Vital Signs Date Time Temp Pulse Resp B/P (MAP) Pulse Ox O2 Delivery O2 Flow Rate FiO2 07/13/20 07:00 98.4 88 18 103/66 (78) 95 Room Air 98.4 Physical Exam Physical Exam Physcial Exam: GEN: No apparent distress. Alert and oriented HEENT: Normal cephalic, atraumatic, external auditory canals are patent EYES: Extraocular muscles are intact, pupil are equally round and reactive to light and accommodation MUSCULOSKELETAL: Limited range of motion in and back. No step-offs or point tenderness in the midline of the spine. ENDOCRINE: No thyromegaly was palpated LYMPHATICS: No cervical chain or axillary nodes were noted HEMATOPOIETIC: No bruising NECK: Supple, no JVD, no thyromegaly was noted LUNGS: Clear to auscultation in all lung lepe without rhonchi or wheezing HEART: RRR, S!, S2 present. Peripheral pulses intact, no obvious murmurs noted ABDOMEN: Soft, nontender. Positive bowel sounds, no organomegaly, normal bowel sounds EXTREMITIES: Patient unable to elevate extremities without assistance. NEUROLOGIC: Normal speech and tone. A&O x 3, moves all extremities, no obvious focal deficits PSYCHIATRIC: Normal affect, normal mood. Stable SKIN: No ulcerations or rashes, good skin turgor, no jaundice VASCULAR: Good capillary refill, neurovascular bundle appears to be intact General: Alert, Oriented X3, Cooperative, No acute distress Heart: Regular rate, Normal S1, Normal S2, No murmurs Lungs: Clear Abdomen: Normal bowel sounds, Soft, No tenderness, No hepatosplenomegaly, No masses Extremities: No clubbing, No cyanosis, No edema, Normal pulses, No tenderness/swelling Skin: No rashes, No breakdown FINAL DIAGNOSIS Problems Medical Problems: (1) Back strain Status: Acute Brief Hospital Course Ms. Vickers is a 30 old [sex] who presented with [ BACK PAIN] CONDITION AT DISCHARGE: Improved Discharge Medications Current Medications Ketorolac Tromethamine (Toradol 15mg Vial) 15 mg 1X ONCE IVP Last administered on 07/11/20at 08:44; Start 07/11/20 at 08:30; Stop 07/11/20 at 08:35; Status DC Sodium Chloride 1,000 ml @ 1,000 mls/hr 1X ONCE IV Last administered on 07/11/20at 08:44; Start 07/11/20 at 08:30; Stop 07/11/20 at 09:29; Status DC Diazepam (Valium) 5 mg 1X ONCE PO Last administered on 07/11/20at 08:45; Start 07/11/20 at 08:30; Stop 07/11/20 at 08:35; Status DC Morphine Sulfate (Morphine Sulfate) 4 mg 1X ONCE IV Last administered on 07/11/20at 09:38; Start 07/11/20 at 09:30; Stop 07/11/20 at 09:31; Status DC Cyclobenzaprine HCl (Flexeril) 10 mg PRN TID PRN PO MUSCLE SPASMS Last administered on 07/12/20at 07:47; Start 07/11/20 at 15:00; Stop 07/12/20 at 12 :36; Status DC Morphine Sulfate (Morphine Sulfate) 2 mg PRN Q2HR PRN IV PAIN Last administered on 07/13/20at 06:49; Start 07/11/20 at 15:00 Sennosides (Senna) 17.2 mg PRN BID PRN PO CONSTIPATION Last administered on 07/12/20at 19:53; Start 07/11/20 at 16:00 Docusate Sodium (Colace) 100 mg PRN DAILY PRN PO HARD STOOLS; Start 07/11/20 at 16:00 Ondansetron HCl (Zofran) 4 mg PRN Q6HRS PRN IVP NAUSEA/VOMITING; Start 07/11/20 at 16:00 Dextrose (Dextrose 50%-Water Syringe) 12.5 gm PRN Q15MIN PRN IV SEE COMMENTS; Start 07/11/20 at 16:00 Acetaminophen (Tylenol) 650 mg PRN Q4HRS PRN PO TEMP OVER 100.4F OR MILD PAIN; Start 07/11/20 at 16:00 Morphine Sulfate (Morphine Sulfate) 1 mg PRN Q1HR PRN IV PAIN; Start 07/11/20 at 16:00 Potassium Chloride (Klor-Con) 40 meq 1X ONCE PO Last administered on 07/12/20at 10:02; Start 07/12/20 at 09:15; Stop 07/12/20 at 09:16; Status DC Potassium Chloride (Klor-Con) 20 meq DAILYWBKFT PO Last administered on 07/13/20at 08:42; Start 07/13/20 at 08:00 Lidocaine (Lidoderm) 1 patch DAILY TD Last administered on 07/13/20at 08:43; Start 07/12/20 at 11:00 Miscellaneous (Lidoderm Patch Removal) 1 ea QHS [facility] ; Start 07/12/20 at 21:00 Ceftriaxone Sodium (Rocephin) 1 gm Q24H IVP Last administered on 07/12/20at 13:25; Start 07/12/20 at 13:00 Vital Signs Vital Signs Date Time Temp Pulse Resp B/P (MAP) Pulse Ox O2 Delivery O2 Flow Rate FiO2 07/13/20 08:00 Room Air 07/13/20 07:00 98.4 88 18 103/66 (78) 95 98.4 Labs Laboratory Tests Test 07/11/20 09:46 07/12/20 05:45 07/13/20 05:45 Bedside Urine HCG, Qualitative Hcg positive (Negative) White Blood Count 9.1 x10^3/uL (4.0-11.0) 7.1 x10^3/uL (4.0-11.0) Red Blood Count 4.15 x10^6/uL (3.50-5.40) 4.06 x10^6/uL (3.50-5.40) Hemoglobin 12.5 g/dL (12.0-15.5) 12.2 g/dL (12.0-15.5) Hematocrit 36.7 % (36.0-47.0) 35.6 % (36.0-47.0) Mean Corpuscular Volume 89 fL (79-100) 88 fL (79-100) Mean Corpuscular Hemoglobin 30 pg (25-35) 30 pg (25-35) Mean Corpuscular Hemoglobin Concent 34 g/dL (31-37) 34 g/dL (31-37) Red Cell Distribution Width 13.8 % (11.5-14.5) 13.8 % (11.5-14.5) Platelet Count 233 x10^3/uL (140-400) 213 x10^3/uL (140-400) Neutrophils (%) (Auto) 80 % (31-73) 67 % (31-73) Lymphocytes (%) (Auto) 15 % (24-48) 25 % (24-48) Monocytes (%) (Auto) 4 % (0-9) 6 % (0-9) Eosinophils (%) (Auto) 1 % (0-3) 1 % (0-3) Basophils (%) (Auto) 1 % (0-3) 1 % (0-3) Neutrophils # (Auto) 7.3 x10^3/uL (1.8-7.7) 4.8 x10^3/uL (1.8-7.7) Lymphocytes # (Auto) 1.4 x10^3/uL (1.0-4.8) 1.8 x10^3/uL (1.0-4.8) Monocytes # (Auto) 0.4 x10^3/uL (0.0-1.1) 0.4 x10^3/uL (0.0-1.1) Eosinophils # (Auto) 0.1 x10^3/uL (0.0-0.7) 0.1 x10^3/uL (0.0-0.7) Basophils # (Auto) 0.1 x10^3/uL (0.0-0.2) 0.0 x10^3/uL (0.0-0.2) Maternal Serum HCG Beta Subunit 948 mIU/mL (0-5) Sodium Level 138 mmol/L (136-145) 139 mmol/L (136-145) Potassium Level 3.3 mmol/L (3.5-5.1) 3.5 mmol/L (3.5-5.1) Chloride Level 104 mmol/L (98-107) 105 mmol/L (98-107) Carbon Dioxide Level 21 mmol/L (21-32) 21 mmol/L (21-32) Anion Gap 13 (6-14) 13 (6-14) Blood Urea Nitrogen 6 mg/dL (7-20) 7 mg/dL (7-20) Creatinine 0.5 mg/dL (0.6-1.0) 0.6 mg/dL (0.6-1.0) Estimated GFR (Cockcroft-Gault) 145.9 118.2 Glucose Level 80 mg/dL (70-99) 101 mg/dL (70-99) Calcium Level 7.7 mg/dL (8.5-10.1) 8.3 mg/dL (8.5-10.1) Phosphorus Level 3.5 mg/dL (2.6-4.7) Magnesium Level 2.0 mg/dL (1.8-2.4) Laboratory Tests Test 07/13/20 05:45 White Blood Count 7.1 x10^3/uL (4.0-11.0) Red Blood Count 4.06 x10^6/uL (3.50-5.40) Hemoglobin 12.2 g/dL (12.0-15.5) Hematocrit 35.6 % (36.0-47.0) Mean Corpuscular Volume 88 fL (79-100) Mean Corpuscular Hemoglobin 30 pg (25-35) Mean Corpuscular Hemoglobin Concent 34 g/dL (31-37) Red Cell Distribution Width 13.8 % (11.5-14.5) Platelet Count 213 x10^3/uL (140-400) Neutrophils (%) (Auto) 67 % (31-73) Lymphocytes (%) (Auto) 25 % (24-48) Monocytes (%) (Auto) 6 % (0-9) Eosinophils (%) (Auto) 1 % (0-3) Basophils (%) (Auto) 1 % (0-3) Neutrophils # (Auto) 4.8 x10^3/uL (1.8-7.7) Lymphocytes # (Auto) 1.8 x10^3/uL (1.0-4.8) Monocytes # (Auto) 0.4 x10^3/uL (0.0-1.1) Eosinophils # (Auto) 0.1 x10^3/uL (0.0-0.7) Basophils # (Auto) 0.0 x10^3/uL (0.0-0.2) Sodium Level 139 mmol/L (136-145) Potassium Level 3.5 mmol/L (3.5-5.1) Chloride Level 105 mmol/L (98-107) Carbon Dioxide Level 21 mmol/L (21-32) Anion Gap 13 (6-14) Blood Urea Nitrogen 7 mg/dL (7-20) Creatinine 0.6 mg/dL (0.6-1.0) Estimated GFR (Cockcroft-Gault) 118.2 Glucose Level 101 mg/dL (70-99) Calcium Level 8.3 mg/dL (8.5-10.1) Allergies Allergies Coded Allergies Type Severity Reaction Last Updated Verified No Known Drug Allergies 07/11/20 No Disposition/Orders: D/C to Home Justicifation of Admission Dx: Justifications for Admission: Justification of Admission Dx: No FILIBERTO JENNINGS MD Jul 13, 2020 09:49
[2020-07-13] MEDS ORDERED: CEPH750C9 PO (09:54)
[2020-07-13] MEDS ORDERED: PREN1TAB99 PO (09:54)
[2020-07-13] MEDS ORDERED: ACET325T21 PO (09:54)
[2020-07-13] MEDS ORDERED: POTA20TA4 PO (09:54)
[2020-07-13] MEDS ORDERED: HYDR-2759 PO (09:54)
[2020-07-13] MEDS ORDERED: LIDO700A21 TD (09:54)
--- NOTE | 2020-07-13 09:55 | DISCH ---
DISCHARGE INSTRUCTIONS Condition on Discharge Condition on Discharge: Stable Activity After Discharge Activity Instructions for Disc: Activity as tolerated Lifting Instructions after Dis: No heavy lifting, No pulling or pushing Exercise Instruction after Dis: Walk 10 min, 3 x per day Driving Instructions after Dis: Do not drive Weight Bearing Status after Di: As tolerated Diet after Discharge Diet after Discharge: Regular Checks after Discharge Checks after discharge: Check blood press - daily Contacting the DR. after DC Call your doctor for: If your condition worsens Follow-Up Follow up with: YOUR OB ROSIO, SATURDAY Treatment/Equipment after DC Adaptive Equipment Issued: None, Brace/splint, Front wheeled walker FILIBERTO JENNINGS MD Jul 13, 2020 09:55
[2020-07-13 11:00] VITALS: BP 128/84
== END 2020-07-13 11:52 | disposition home or self-care (01) ==
LOC: ER 08:23 → 4 NORTH 12:12
PROVIDERS: ADMIT Internal Medicine; ATTEND Internal Medicine
DX: O9A.211 Injury, poisoning and certain other consequences of external causes complicating pregnancy, first trimester (principal); S39.012A Strain of muscle, fascia and tendon of lower back, initial encounter; O99.281 Endocrine, nutritional and metabolic diseases complicating pregnancy, first trimester; O14.90 Unspecified pre-eclampsia, unspecified trimester; O36.80X0 Pregnancy with inconclusive fetal viability, not applicable or unspecified; O34.01 Maternal care for unspecified congenital malformation of uterus, first trimester; E87.6 Hypokalemia; Z3A.01 Less than 8 weeks gestation of pregnancy; Z87.442 Personal history of urinary calculi; Z98.890 Other specified postprocedural states; Z98.891 History of uterine scar from previous surgery; Z79.899 Other long term (current) drug therapy; X50.0XXA Overexertion from strenuous movement or load, initial encounter; Y93.89 Activity, other specified; Y92.89 Other specified places as the place of occurrence of the external cause; Y99.8 Other external cause status
CPT/HCPCS: 36415; 76801; 76817; 80048; 81001; 81025; 82550; 83735; 84100; 84702; 85025; 87086; 96361; 96374; 96375; 96376; 97110; 97116; 97162; 97166; 97530; 97535; 99284; G0378; J0696; J1885; J2270; J7030; G0379